=== PATIENT | female | born 1995 | race Native Hawaiian/Other Pacific Islander ===

== ENCOUNTER → 2016-06-15 | Outpatient (CLI) | payer OTHER ==
--- NOTE | 2016-06-15 18:52 | CONS ---
DATE OF CONSULTATION: CONSULTATION/NEW PATIENT EVALUATION A 21-year-old lady who has been evaluated in the [facility] for sleep about 15 hours during the night every day and sometimes difficulties to initiate sleep and sleepiness during the day and also history of sleep paralysis. HISTORY OF PRESENT ILLNESS/SLEEP-WAKE EVALUATION: SLEEP SCHEDULE: Patient's usual sleep schedule is from 10:30 p.m. until around 2:15 p.m. on the next day. If patient wakes up in the morning she eats and then sleeps again. FALLING ASLEEP: Sometimes she has problem with falling asleep. No TV in bedroom. She does not read in bedroom. She does not stay in bedroom without sleep. DURING SLEEP: During sleep she may for snoring if she is significantly tired. She has grinding teeth, episodes of palpitations. While falling asleep she may have discomfort in her legs which decrease while she is moving her legs. also she moves a lot during sleep with possible episodes of kicking. Positive history of sleep on and off paralysis. No history of hypnagogic hallucinations or cataplexy. Patient has episodes of palpitations sometimes during sleep time. DURING THE DAY/WAKE STATE: In the morning she wakes up tired, has difficulties to pay attention, falling asleep during the day. He has irritability. [place] Sleepiness Scale is 8 with again 15 hours of sleep during the night. PAST MEDICAL HISTORY: Positive for episodes of cardiac arrhythmia with high heart rate presently on treatment with metoprolol for that reason. Hypothyroidism. PAST SURGICAL HISTORY: Surgery for hiatal hernia, cholecystectomy, tonsillectomy and adenoidectomy. MEDICATIONS: Metoprolol, Levothyroxine, ( ). SOCIAL HISTORY: Negative for smoking or using alcohol. REVIEW OF SYSTEMS: Difficulties to initiate sleep with very long sleep with difficulties to get up from sleep. No fevers. No double vision. No recent chest pain. No shortness of breath. No abdominal pain. No bleeding episodes. No blood in urine. No seizure episodes. FAMILY HISTORY: Hypertension, heart problems, hyperlipidemia, stroke, arthritis, asthma, snoring, headaches, cancer, acid reflux, diabetes, thyroid problems, anemia, mental illness. PHYSICAL EXAMINATION: GENERAL: A pleasant 21-year-old lady without distress. VITAL SIGNS: BP 147/96, HR 88, RR 16. Height 5 foot 2 inches. Weight 205. BMI 36.8. Neck is 14-3/4 which in circumference. Temp is 98.0. Oxygen saturation at room air 99%. HEENT: PERRLA, EOMI. Evaluation of oropharynx, practically normal position of the soft palate. Some restriction of nasal breathing on the left side. NECK: Supple. No JVD. Thyroid is not palpable. LUNGS: Clear to percussion and to auscultation. Good air exchange. No wheezing or rhonchi. HEART: S1, S2 regular. No murmurs, gallops or rubs. ABDOMEN: Slightly obese. Soft and nontender. Bowel sounds are present. No organomegaly appreciated. EXTREMITIES: No clubbing or cyanosis. RESTUARANT CREW WORKER: Awake, alert, and oriented x3. Cranial nerves 2 to 7 intact. There is no fasciculation or atrophy noted. No focal deficits observed. IMPRESSION: 1. Patient sleeps for 15 hours, but no history of hypnagogic hallucinations or cataplexy. Differential diagnosis includes hypersomnia specifically idiopathic hypersomnia. 2. Positive history on and off sleep paralysis. 3. Snoring episodes, obesity, restriction of nasal breathing, rule out obstructive sleep apnea-hypopnea syndrome. 4. Episodes of cardiac arrhythmia, which never had been record, possibly supraventricular tachycardia. 5. Hypothyroidism, on thyroid replacement. 6. Status post cholecystectomy. 7. Status post surgical treatment of hiatal hernia. 8. Status post tonsillectomy and adenoidectomy. PLAN: 1. Polysomnogram for evaluation of patient's breathing during sleep with the following multiple sleep latency tests for objective evaluation of patient's symptoms of excessive daytime sleepiness. 2. CPAP titration and sleep study positive for obstructive sleep apnea-hypopnea syndrome. 3. Losing weight. 4. Sleep hygiene with regular time in bed for 8 hours. 5. No driving if feeling any sleepiness. 6. Recommendations related to possible insomnia should include psychological techniques including stimulus control, paradoxical intention, worry time, no watching clock. Thank you very much for referring this patient for consultation. Sincerely, Dionisio Alexandra MD, PhD, FAASM. Diplomat of [place] [employer], Sleep Medicine Board by [place] [employer] [place] [employer] [place]
== END | disposition home or self-care (01) ==
LOC: SLEEP 15:52
PROVIDERS: ATTEND Internal Medicine
DX: G47.19 Other hypersomnia (principal); G47.53 Recurrent isolated sleep paralysis; R06.83 Snoring; E66.9 Obesity, unspecified; Z68.36 Body mass index [BMI] 36.0-36.9, adult; I49.9 Cardiac arrhythmia, unspecified; E03.9 Hypothyroidism, unspecified; Z98.890 Other specified postprocedural states
CPT/HCPCS: 99211

== ENCOUNTER → 2016-07-13 | Outpatient (CLI) | payer OTHER ==
--- NOTE | 2016-07-13 18:48 | PN ---
This 21-year-old lady has been followed in the sleep center. She is here to discuss results of her diagnostic sleep study and recommendations. We discussed results of diagnostic sleep study with the patient and her family in details. No significant respiratory abnormalities have been documented. Apnea-hypopnea index is only 0.6, lowest oxygen level 91.9%. Sleep efficiency was decreased. Patient slept only 3 hours 31 minutes, which did not permit us to do multiple sleep latency test after that to evaluate her sleepiness. Her present sleep schedule is usually in the morning hours. She usually sleeps from about 6 a.m. until 12 noon. Only with medications is she able to fall asleep at the regular time. Her [place] Sleepiness Scale today is 7. MEDICATIONS: 1. Metoprolol. 2. Levothyroxine. 3. Sprintec. PHYSICAL EXAMINATION: [id number]-old lady without distress. VITAL SIGNS: BP 135/89 on the left arm. HR around 100. RR 16. Temperature 98.4. Oxygen saturation at room air 98%. Weight 202 pounds. BMI 36.9. HEENT: PERRLA, EOMI. LUNGS: Clear. HEART: S1, S2 regular. ABDOMEN: Slightly obese, soft, nontender. EXTREMITIES: No edema. IMPRESSION: 1. No significant respiratory abnormalities have been documented during the sleep study. 2. Sleep delay syndrome. 3. Obesity; body mass index 36.9. 4. Very mild snoring was documented during the sleep study. 5. Hypothyroidism. 6. History of sleep paralysis. 7. History of sleeping up to 15 hours at home sometimes; idiopathic hypersomnia in differential diagnosis, but again I think most probably it is related to sleep delay syndrome. 8. Status post tonsillectomy and adenoidectomy. 9. Status post cholecystectomy. 10. Status post ( ) PLAN: 1. 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 We discussed possibility of using light machine. 2. Avoid bright light in the evening, especially blue light, like computer or TV, in the late evening. 3. Patient may try to use melatonin at 8 p.m. 4. Preferable position for sleep is on the side. 5. No driving if feeling any sleepiness. 6. If patient continues to have symptoms of excessive daytime sleepiness in the future, we may consider proceeding with a PSG and following multiple sleep latency test. Thank you very much for allowing me to participate in the management of your patient. Sincerely, Dionisio Alexandra MD, PhD, FAASM. Diplomat of [place] [employer], Sleep Medicine Board by [place] [employer], [place] [employer]
== END | disposition home or self-care (01) ==
LOC: SLEEP 13:56
PROVIDERS: ATTEND Internal Medicine
DX: G47.21 Circadian rhythm sleep disorder, delayed sleep phase type (principal); G47.11 Idiopathic hypersomnia with long sleep time; E66.9 Obesity, unspecified; E03.9 Hypothyroidism, unspecified; G47.53 Recurrent isolated sleep paralysis; Z68.36 Body mass index [BMI] 36.0-36.9, adult; Z79.899 Other long term (current) drug therapy

== ENCOUNTER → 2016-09-29 | Outpatient (CLI) | payer OTHER ==
--- NOTE | 2016-09-29 15:10 | CT ---
CT CHEST FOR PULMONARY EMBOLISM. EXAMINATION TYPE: CT angio chest DATE OF EXAM: 09/29/2016 11:09 AM INDICATION: SOB, chest pain CT DLP: 525 mGycm, Automated exposure control for dose reduction was used. CONTRAST: Patient injected with 100 mL of Omnipaque 350. COMPARISON: NONE TECHNIQUE: CT of the chest is performed on a spiral scan at 2 mm thick sections. Study is performed with intravenous contrast timed for evaluation for pulmonary embolism. This will limit additional po rtions of the evaluation. 3-D MIP images reconstructed by the technologist are reviewed on the compu ter in the coronal and sagittal planes. FINDINGS: No persistent filling defects are evident to suggest an acute pulmonary embolism. No mediastinal or hilar adenopathy enlarged by CT criteria is evident. The ascending aorta diameter at the level of the main pulmonary artery is 2.6 cm. The main pulmonary artery diameter at the bifur cation is 2.4 cm. Lung windows are clear.[address] section through the upper abdomen are unremarkable. Cholecystectomy clips are present. IMPRESSIONS: 1. No acute pulmonary process. No suspicious acute pulmonary embolism evident.
== END ==
LOC: RADCTMAIN 10:36
PROVIDERS: ATTEND Family Medicine
DX: I26.99 Other pulmonary embolism without acute cor pulmonale (principal)
CPT/HCPCS: 71275; Q9967

== ENCOUNTER → 2017-01-29 | Day surgery (SDC) | payer OTHER ==
[2017-01-22 14:37] VITALS: BMI 38.5
[~2017-01-29] MED LIST: ONDANSETRON 4 MG/2 ML VIAL IVP ONE; ONDANSETRON 4 MG/2 ML VIAL ONE; SODIUM CHLORIDE 0.9% 1,000 ML IV SCH
[2017-01-29 09:09] VITALS: RESP 18
[2017-01-29 10:55] LABS: Glucose,Whole Blood 94 mg/dL (75-99)
[2017-01-29 11:14] VITALS: TEMP 98.4
[2017-01-29 11:19] VITALS: BP 116/62; PULSE 72
--- NOTE | 2017-01-29 13:15 | P.PCN ---
Preoperative Diagnosis: Twelve-lead ECG Sinus rhythm normal KS narrow QRS normal ST segments normal QT interval no delta waves no epsilon waves normal ST segments in the precordial leads Tilt table test per protocol Baseline blood pressure 126/79 mmHg Baseline heart rate 74 beats a minute Patient was tilted upright at an angle of 70. There was a gradual increase in her blood pressure and heart rate maintained sinus rhythm was hypertensive Blood pressure increased 163/97 mmHg. During the first 10 minutes heart rate increased from 74-87 beats a minute. It was towards the end of the tilt table test and a heart rate increased above 100 beats a minute started to sweat complaining of nausea complained of lightheaded and shaky when she was laid supine her blood pressure was 137/74 mmHg her heart rate is 79 beats a minute Impression Absence of a neurocardiogenic response to upright tilting A gradual progressive increase in heart rate as well as in the patient's blood pressure was noted Suggest Neurologic evaluation Postoperative Diagnosis: Procedure(s) Performed: Implants: Indications for Procedure: Operative Findings: Description of Procedure:
== END ==
LOC: CATHEP 08:44
PROVIDERS: ATTEND Internal Medicine Clinical Cardiac Electrophysiology
DX: I47.1 Supraventricular tachycardia (principal); Z79.899 Other long term (current) drug therapy; Z88.5 Allergy status to narcotic agent
CPT/HCPCS: 93005; 93660; 81025; J2405

== ENCOUNTER → 2017-02-10 | Outpatient (CLI) | payer OTHER ==
--- NOTE | 2017-02-10 13:20 | XR ---
EXAMINATION TYPE: XR chest 2V DATE OF EXAM: 02/10/2017 COMPARISON: CTA chest September 29, 2016. HISTORY: Cough and cardiac arrhythmia. TECHNIQUE: Frontal and lateral views of the chest are obtained. FINDINGS: There is no focal air space opacity, pleural effusion, or pneumothorax seen. The cardiac silhouette size is within normal limits. The osseous structures are intact. Cholecystectomy clips a re redemonstrated. IMPRESSION: No acute cardiopulmonary process. No significant change from prior.
== END | disposition home or self-care (01) ==
LOC: LABWHC1 12:55
PROVIDERS: ATTEND Family Medicine
DX: I49.9 Cardiac arrhythmia, unspecified (principal)
CPT/HCPCS: 71020

== ENCOUNTER → 2017-02-10 | Outpatient (CLI) | payer OTHER ==
[2017-02-10 13:34] LABS: CH 27.2; CHCM 33.3; HCT 40.9 % (34.0-46.0); HDW 2.82; HGB 13.5 gm/dL (11.4-16.0); MCV 81.9 fL (80.0-100.0); Mean Platelet Volume 7.4; RDW 14.4 % (11.5-15.5); WBC 8.2 k/uL (3.8-10.6)
[2017-02-10 14:00] LABS: Anion Gap 11 mmol/L; Blood Urea Nitrogen 11 mg/dL (7-17); Calcium 9.6 mg/dL (8.4-10.2); Carbon Dioxide 26 mmol/L (22-30); Chloride 105 mmol/L (98-107); Glucose 96 mg/dL (74-99); Non-African American GFR(MDRD) >60 (>60 ml/min/1.73 sqM); Potassium 4.7 mmol/L (3.5-5.1); Sodium 142 mmol/L (137-145)
== END | disposition home or self-care (01) ==
LOC: LABWHC1 12:51
PROVIDERS: ATTEND Internal Medicine Clinical Cardiac Electrophysiology
DX: I47.1 Supraventricular tachycardia (principal)
CPT/HCPCS: 36415; 80048; 85027

== ENCOUNTER 2017-02-19 11:00 | Day surgery (SDC) | payer OTHER ==
[2017-02-16 08:44] VITALS: BMI 38.4
[~2017-02-19 11:00] MED LIST changes: -ONDANSETRON 4 MG/2 ML VIAL IVP ONE; -ONDANSETRON 4 MG/2 ML VIAL ONE
[2017-02-19] MEDS ORDERED: MIDAZOLAM 2 MG/2 ML VIAL IV ONE (11:58)
[2017-02-19] MEDS ORDERED: fentaNYL (PF) 50 MCG/ML 2 ML AMP ONE (13:37)
[2017-02-19] MEDS ORDERED: diphenhydrAMINE 50 MG/ML 1 ML VIAL ONE (13:37)
[2017-02-19] MEDS ORDERED: MIDAZOLAM 2 MG/2 ML VIAL ONE (13:37)
[2017-02-19] MEDS ORDERED: PROPOFOL 10 MG/ML 20 ML VIAL IV ONE (13:37)
[2017-02-19] MEDS ORDERED: LIDOCAINE 2% INJ 20 MG/ML SQ ONE (14:20)
[2017-02-19] MEDS ORDERED: HEPARIN SODIUM (1,000 UNIT/ML) 1,000 UNIT in SODIUM CHLORIDE 0.9% 1,000 ML IRRIGATION ONE (15:00)
[2017-02-19] MEDS ORDERED: HYDROcodone/APAP 5-325MG 1 EACH TAB PO PRN (16:32)
--- NOTE | 2017-02-19 16:41 | P.PCN ---
Preoperative Diagnosis: Indication for the procedure SVT despite nadolol 20 mg by mouth daily Final diagnosis Inappropriate sinus tachycardia with a resting heart rates up to 140-150 beats a minute Status post AV node modification with residual heart rates of about 110-120 beats a minute No other SVT arrhythmias induced Procedure performed Limited sinus node modification Multiple activation maps created Reduction in heart rate from 146 to 112 beats a minute Plan Medical treatment with IVABRADINE 5 mg by mouth twice a day Since she has failed nadolol Postoperative Diagnosis: Procedure(s) Performed: Implants: Anesthesia: MAC Condition: stable Disposition: observation Indications for Procedure: Operative Findings: Description of Procedure:
[2017-02-19] MEDS ORDERED: NADOLOL 20 MG TAB PO SCH (16:45)
[2017-02-19] MEDS ORDERED: ONDANSETRON 4 MG/2 ML VIAL IVP ONE (16:50)
--- NOTE | 2017-02-19 17:05 | P.PCN ---
Preoperative Diagnosis: Diagnostic EP study for SVT, drug refractory Patient was brought to the EP lab in a fasting state. Written informed consent was obtained prior to the procedure. The right and left groins were prepped and draped as a protocol and to venous sheaths were placed in the right femoral vein and another 2 venous sheaths were placed in the left femoral vein. Via these diagnostic catheters were placed in the high right atrium His bundle area right ventricle and coronary sinus The patient wasn't tachycardia the start of the study tachycardia cycle length 364 ms, GA interval 78, QRS 84 and QT interval 250 ms. AH interval 82, HV interval 46, within normal limits No evidence for slow pathway conduction no evidence for any echo beats no evidence for accessory pathway conduction. AV node Wenckebach block to 90 ms VA Wenckebach block 390 ms. Atrial extra stimulation with single and double extrastimuli from the high right atrium as well as from the coronary sinus and the right ventricle was performed. No other SVT was induced Isuprel was not used Coronary sinus massage briefly slow down the tachycardia and then resume once again The atrial activation was consistent with a high to low sequence similar to the sinus node Multiple 3-D maps were created both with the ablation and mapping catheter as well as with the Pentaray catheter RF ablation was applied at the earliest site in the anterior lateral low SVC RA junction after confirming the absence of any phrenic nerve stimulation Repeat mapping was performed after RF applications Finally Pentaray catheter was used to obtain the final detailed map. This showed a broad area of activation as expected in the SVC RA junction. The earliest site was targeted. Patient's sinus rate decreased from 146 beats a minute to as low as 112 beats a minute, range 110-120 bpm Contact force between 5 and 20 g, power between 25-30 W Significant reduction in the electrograms and splitting of the electrograms at the earliest site noted At the end of the procedure when a heart rate decreased to 112 beats a minute all catheters were removed. Further sinus node modification was not performed, extensive ablation was avoided to avoid permanent sinus node damage Patient for the procedure well without any acute complications Impression Inappropriate sinus tachycardia Status post limited sinus node modification as the patient failed nadolol 20 mg by mouth daily Suggest IVABRADINE 5 mg twice daily since patient has already failed nadolol and sinus tachycardia remains after a limited sinus node modification was performed Postoperative Diagnosis: Procedure(s) Performed: Implants: Anesthesia: MAC Condition: stable Disposition: observation Indications for Procedure: Operative Findings: Description of Procedure:
[2017-02-19] MEDS: ACETAMINOPHEN IV (For NPO) 1,000 MG in EMPTY BAG 1 BAG IVPB ONE ×2 (17:45→18:00)
[2017-02-19] MEDS ORDERED: LACTATED RINGERS 1,000 ML IV ONE (17:59)
[2017-02-19] MEDS: NADOLOL 20 MG TAB PO SCH (18:42)
[2017-02-19] MEDS ORDERED: MELATONIN 5 MG TABLET PO PRN (19:56)
[2017-02-19] MEDS ORDERED: LEVOTHYROXINE 50 MCG TAB PO SCH (21:00)
[2017-02-20] MEDS: ACETAMINOPHEN TAB 325 MG TAB PO PRN ×2 (02:24→08:30)
[2017-02-20] MEDS: NADOLOL 20 MG TAB PO SCH (09:24)
[2017-02-20 14:13] VITALS: BP 136/74; PULSE 84; RESP 16; TEMP 97.5
--- NOTE | 2017-02-20 15:04 | P.DS ---
Providers Attending physician: Pascual Mcgowan Primary care physician: [facility] Course: Patient is doing well. No chest discomfort no dizziness lightheadedness denies any palpitations. Resting heart rate 93 beats a minute. On 12 ECG ND is prolonged at 280 ms on nadolol 40 mg by mouth daily. Patient is in normal rhythm is regular heart sounds are normal breath sounds are normal no rhonchi no crackles no murmurs no gallops no rub Afebrile 97.5F, pulse rate in the 80s to 90s, blood pressure 136/74 mmHg Impression Inappropriate sinus tachycardia Sinus node modification with heart rates down from 146 beats a minute to 110- 120 beats a minute Started on nadolol 40 mg by mouth daily Significant ND prolongation on nadolol to 280 mm seconds Nadolol reduced to 20 mg by mouth daily IVABRADINE recommended, 5 mg by mouth twice a day for management of inappropriate sinus tachycardia Normal TSH Plan Discharge home today follow-up for a groin check within a week and follow-up with Dr. Hopper as scheduled along with a 24-hour Holter monitor 2 weeks prior to that Patient intolerant of 40 mg of nadolol. I would recommend IVABRADINE 5 mg twice daily Patient Condition at Discharge: Good Plan - Discharge Summary New Discharge Prescriptions: No Action Levothyroxine Sodium [Synthroid] 50 mcg PO HS Albuterol Inhaler [Ventolin Hfa Inhaler] 1 puff PO DAILY PRN PRN Reason: Shortness Of Breath Or Wheezing Nadolol [Corgard] 20 mg PO DAILY Norgestimate-Ethinyl Estradiol [Sprintec 28 Day Tablet] 1 each PO DAILY Ibuprofen [Motrin] 800 mg PO PC-TID PRN PRN Reason: Moderate Pain Discharge Medication List Levothyroxine Sodium [Synthroid] 50 mcg PO HS 12/05/13 [History] Albuterol Inhaler [Ventolin Hfa Inhaler] 1 puff PO DAILY PRN 07/02/15 [History] Nadolol [Corgard] 20 mg PO DAILY 01/22/17 [History] Norgestimate-Ethinyl Estradiol [Sprintec 28 Day Tablet] 1 each PO DAILY [History] Ibuprofen [Motrin] 800 mg PO PC-TID PRN 02/19/17 [History] Follow up Appointment(s)/Referral(s): Pascual Mcgowan MD [STAFF PHYSICIAN] - 1 Week (Appointment made for groin check on Feb.23 @ 11:00am.) Patient Instructions/Handouts: Supraventricular Tachycardia (DC), Cardiac Ablation (DC) Activity/Diet/Wound Care/Special Instructions: Post EP study - Ablation instructions 1. Keep access sites dry for 2 days. 2. No heavy lifting or straining for 2 days. 3. Avoid bending the hips repeatedly for 2 days. 4. You may go up and down stairs slowly Call if the following is noted 1. Bleeding, increasing swelling or pain at the access sites. 2. Increasing chest discomfort, especially upon taking a deep breath. 3. Increasing shortness of breath, at rest or with exertion. 4. Undue cough / phlegm 5. Difficulty or pain while swallowing. 6. Pain or change in color in the extremities. 7. Fever, chills, rigors. 8. Increasing headache or neurologic symptoms. 9. Dizziness, fainting, palpitions. Keep on Nadolol 20 mg daily. Keep appointment in March to see Dr Mcgowan Discharge Disposition: HOME SELF-CARE
== END 2017-02-20 13:55 | disposition home or self-care (01) ==
LOC: CATHEP 11:00 → 3OBS 16:33 → CATHEP 02-20 13:55
PROVIDERS: ATTEND Internal Medicine Clinical Cardiac Electrophysiology
DX: I47.1 Supraventricular tachycardia (principal); R55 Syncope and collapse; J45.909 Unspecified asthma, uncomplicated; E07.9 Disorder of thyroid, unspecified; K21.9 Gastro-esophageal reflux disease without esophagitis; Z79.899 Other long term (current) drug therapy; Z88.6 Allergy status to analgesic agent; Z88.5 Allergy status to narcotic agent
CPT/HCPCS: 93613; 93653; 84443; 81025; C1894; C1769; C1730 ×3; C1731; C1732; J2001; J2250; J2405; J1644; J0131

== ENCOUNTER → 2017-03-26 | Outpatient (CLI) | payer OTHER ==
--- NOTE | 2017-03-26 17:05 | US ---
EXAMINATION TYPE: US lower ext pseudo artery LT DATE OF EXAM: 03/26/2017 COMPARISON: NONE CLINICAL HISTORY: I72.9 Psuedoaneurysm; Assess for left groin pseudoaneurysm. EXAM PERFORMED: Grayscale and color Doppler duplex imaging performed of the groin, post cardiac blair ter to assess for pseudoaneurysm. SIDE PERFORMED: left Color and Waveform Doppler performed to assess for the presence of pseudoaneurysm; Is there ultrasound evidence of a pseudoaneurysm: no Is there evidence of AV shunting: no Is there a fluid collection present: no Left groin: couple of lymph nodes are imaged with larger = 3.1 x 1.6 x 0.5cm.These are nonenlarged an d short axis measuring 5 mm and 6 mm in short axis. Parallel echoes are noted within MANUFACTURING SUPPORT ENGINEER on images #29 and # 30 and color flow patency is noted around wa ll echoes and may be scar tissue from cardiac catheterization or collagen plug (patient stated unawar e if collagen plug was used.) IMPRESSION: 1. No sonographic evidence of pseudoaneurysm. 2. Few echoes within the common femoral artery are seen that may be related to scar tissue as they ar e linear in orientation, nonocclusive and there is appropriate vascular flow.
== END ==
LOC: RADUSWWP 16:12
PROVIDERS: ATTEND Internal Medicine Clinical Cardiac Electrophysiology
DX: I72.9 Aneurysm of unspecified site (principal)
CPT/HCPCS: 93975

== ENCOUNTER 2018-02-16 10:06 | Emergency (ER) | payer OTHER ==
[2018-02-16 10:15] VITALS: RESP 18
[2018-02-16] MEDS ORDERED: KETOROLAC 60 MG/2 ML VIAL IVP STA (10:19)
--- NOTE | 2018-02-16 10:24 | ED ---
General Adult HPI - General Chief complaint: Chest Pain Stated complaint: Chest Pain Time Seen by Provider: 02/16/18 10:06 Source: EMS, RN notes reviewed Mode of arrival: EMS Limitations: no limitations - History of Present Illness Initial comments: This is a 22-year-old female presents emergency room with a past history of SVT possibly A. fib. Patient also is on control. Patient comes into the emergency department today because she had sharp chest pain in the middle of her chest that lasted a couple of minutes. Patient states it also hurts to touch that area. Patient states she was not lifting or doing anything that will would've hurt her chest when it started. Patient states currently lying here she has no pain at all. Patient denies any shortness of breath or difficulty breathing. Patient denies any diaphoretic episodes. Patient denies any nausea vomiting diarrhea. Patient denies abdominal pain. Patient denies any lightheadedness dizziness or near-syncopal episode. Patient denies any recent fever chills or cough. Patient denies any swelling to the legs or calf tenderness. - Related Data Home Medications Medication Instructions Recorded Confirmed Levothyroxine Sodium [Synthroid] 50 mcg PO HS 12/05/13 02/16/18 Albuterol Inhaler [Ventolin Hfa 1 - 2 puff PO RT-QID PRN 07/02/15 02/16/18 Inhaler] Nadolol [Corgard] 20 mg PO DAILY 01/22/17 02/16/18 Norgestimate-Ethinyl Estradiol 1 tab PO HS 02/16/17 02/16/18 [Sprintec 28 Day Tablet] Previous Rx's Medication Instructions Recorded Ibuprofen [Motrin] 600 mg PO Q6HR PRN #20 tab 02/16/18 Allergies Allergy/AdvReac Type Severity Reaction Status Date / Time codeine phosphate Allergy Severe ABDOMINAL Verified 02/16/18 10:58 [From Tylenol-Codeine #3] PAIN, FAINTING shellfish derived Allergy Severe Anaphylaxis Verified 02/16/18 10:58 acetaminophen [From Vicodin] Allergy Nausea & Verified 02/16/18 10:58 Vomiting hydrocodone bitartrate Allergy Nausea & Verified 02/16/18 10:58 [From Vicodin] Vomiting Review of Systems ROS Statement: Those systems with pertinent positive or pertinent negative responses have been documented in the HPI. ROS Other: All systems not noted in ROS Statement are negative. Past Medical History Past Medical History: Asthma Additional Past Medical History / Comment(s): OCC HYPOGLYCEMIA. See Dr Mcgowan' s H&P, SVT History of Any Multi-Drug Resistant Organisms: MRSA Date of last positivie culture/infection: 06/11/09 MDRO Source:: THIGH Past Surgical History: Adenoidectomy, Cholecystectomy, Tonsillectomy Additional Past Surgical History / Comment(s): WISDOM TOOTH OUT 11/17/13, Ablasion due to SVT. Past Anesthesia/Blood Transfusion Reactions: Family History of Problems w/ Anesthesia, Motion Sickness Additional Past Anesthesia/Blood Transfusion Reaction / Comment(s): SLOW TO AWAKEN OCC.; sister n/v Past Psychological History: ADD/ADHD Smoking Status: Never smoker Past Alcohol Use History: None Reported Past Drug Use History: None Reported - Past Family History Mother Family Medical History: No Reported History General Exam - General Exam Comments Initial Comments: GENERAL: Patient is well-developed and well-nourished. Patient is nontoxic and well- hydrated and is in no acute distress. ENT: Neck is soft and supple. No significant lymphadenopathy is noted. Oropharynx is clear. Moist mucous membranes. Neck has full range of motion without eliciting any pain. EYES: The sclera were anicteric and conjunctiva were pink and moist. Extraocular movements were intact and pupils were equal round and reactive to light. Eyelids were unremarkable. PULMONARY: Unlabored respirations. Good breath sounds bilaterally. No audible rales rhonchi or wheezing was noted. CARDIOVASCULAR: There is a regular rate and rhythm without any murmurs gallops or rubs. Patient 's chest pain is reproducible. ABDOMEN: Soft and nontender with normal bowel sounds. SKIN: Skin is clear with no lesions or rashes and otherwise unremarkable. NEUROLOGIC: Patient is alert and oriented x3. Cranial nerves II through XII are grossly intact. Motor and sensory are also intact. Normal speech, volume and content. Symmetrical smile. MUSCULOSKELETAL: Normal extremities with adequate strength and full range of motion. No lower extremity swelling or edema. No calf tenderness. LYMPHATICS: No significant lymphadenopathy is noted PSYCHIATRIC: Normal psychiatric evaluation. Limitations: no limitations Course Vital Signs 02/16/18 02/16/18 10:08 10:23 Temperature 99.0 F Pulse Rate 75 Pulse Rate [ 85 Specialty Molder ] Respiratory 18 Rate Blood Pressure 150/80 O2 Sat by Pulse 99 Oximetry Medical Decision Making - Medical Decision Making EKG shows normal sinus rhythm at 76 bpm LA interval 294 QRS is 84 QT interval 374 QTC is 420. Patient's EKG shows no ST segment elevation or depression or T- wave abdomen is noted. I clarified with the patient what type of pain as well as she stated to me it was not pressure and sharpness and it radiated from the center of her chest just a few inches over towards the left but not into her shoulder. Patient also indicated they did give her nitroglycerin but she does not know if it helped or not because the pain typically lasts 1-2 minutes anyhow. Chest x-ray shows no acute abnormality. Patient refused the Toradol. - Lab Data Result diagrams: 02/16/18 10:20 02/16/18 10:20 Lab Results 02/16/18 02/16/18 02/16/18 Range/Units 10:20 10:20 10:20 WBC 8.5 (3.8-10.6) k/uL RBC 4.46 (3.80-5.40) m/uL Hgb 12.0 (11.4-16.0) gm/dL Hct 37.9 (34.0-46.0) % MCV 84.8 (80.0-100.0) fL MCH 26.9 (25.0-35.0) pg MCHC 31.8 (31.0-37.0) g/dL RDW 13.2 (11.5-15.5) % Plt Count 319 (150-450) k/uL Neutrophils % 68 % Lymphocytes % 22 % Monocytes % 5 % Eosinophils % 1 % Basophils % 0 % Neutrophils # 5.8 (1.3-7.7) k/uL Lymphocytes # 1.9 (1.0-4.8) k/uL Monocytes # 0.4 (0-1.0) k/uL Eosinophils # 0.1 (0-0.7) k/uL Basophils # 0.0 (0-0.2) k/uL PT (9.0-12.0) sec INR (<1.2) APTT (22.0-30.0) sec D-Dimer (<0.60) mg/L FEU Sodium 141 (137-145) mmol/L Potassium 3.7 (3.5-5.1) mmol/L Chloride 109 H (98-107) mmol/L Carbon Dioxide 23 (22-30) mmol/L Anion Gap 9 mmol/L BUN 12 (7-17) mg/dL Creatinine 0.63 (0.52-1.04) mg/dL Est GFR (CKD-EPI)AfAm >90 (>60 ml/min/1.73 sqM) Est GFR (CKD-EPI)NonAf >90 (>60 ml/min/1.73 sqM) Glucose 100 H (74-99) mg/dL Calcium 8.8 (8.4-10.2) mg/dL Magnesium 1.8 (1.6-2.3) mg/dL Total Bilirubin 0.4 (0.2-1.3) mg/dL AST 20 (14-36) U/L ALT 22 (9-52) U/L Alkaline Phosphatase 64 (38-126) U/L Total Creatine Kinase 42 (30-135) U/L CK-MB (CK-2) <0.2 (0.0-2.4) ng/mL CK-MB (CK-2) Rel Index Troponin I <0.012 (0.000-0.034) ng/mL Total Protein 6.3 (6.3-8.2) g/dL Albumin 3.2 L (3.5-5.0) g/dL 02/16/18 Range/Units 10:20 WBC (3.8-10.6) k/uL RBC (3.80-5.40) m/uL Hgb (11.4-16.0) gm/dL Hct (34.0-46.0) % MCV (80.0-100.0) fL MCH (25.0-35.0) pg MCHC (31.0-37.0) g/dL RDW (11.5-15.5) % Plt Count (150-450) k/uL Neutrophils % % Lymphocytes % % Monocytes % % Eosinophils % % Basophils % % Neutrophils # (1.3-7.7) k/uL Lymphocytes # (1.0-4.8) k/uL Monocytes # (0-1.0) k/uL Eosinophils # (0-0.7) k/uL Basophils # (0-0.2) k/uL PT 10.0 (9.0-12.0) sec INR 1.0 (<1.2) APTT 23.1 (22.0-30.0) sec D-Dimer 0.28 (<0.60) mg/L FEU Sodium (137-145) mmol/L Potassium (3.5-5.1) mmol/L Chloride (98-107) mmol/L Carbon Dioxide (22-30) mmol/L Anion Gap mmol/L BUN (7-17) mg/dL Creatinine (0.52-1.04) mg/dL Est GFR (CKD-EPI)AfAm (>60 ml/min/1.73 sqM) Est GFR (CKD-EPI)NonAf (>60 ml/min/1.73 sqM) Glucose (74-99) mg/dL Calcium (8.4-10.2) mg/dL Magnesium (1.6-2.3) mg/dL Total Bilirubin (0.2-1.3) mg/dL AST (14-36) U/L ALT (9-52) U/L Alkaline Phosphatase (38-126) U/L Total Creatine Kinase (30-135) U/L CK-MB (CK-2) (0.0-2.4) ng/mL CK-MB (CK-2) Rel Index Troponin I (0.000-0.034) ng/mL Total Protein (6.3-8.2) g/dL Albumin (3.5-5.0) g/dL Disposition Clinical Impression: Chest wall pain Disposition: HOME SELF-CARE Condition: Good Instructions: Chest Pain (ED) Prescriptions: Ibuprofen [Motrin] 600 mg PO Q6HR PRN #20 tab PRN Reason: For pain Is patient prescribed a controlled substance at d/c from ED?: No Referrals: Tanvir Tay DO [Primary Care Provider] - 1-2 days Time of Disposition: 11:19
[2018-02-16 10:41] LABS: Basophils % (A) 0 %; Eosinophils # (A) 0.1 k/uL (0-0.7); Eosinophils % (A) 1 %; HCT 37.9 % (34.0-46.0); Lymphocytes # (A) 1.9 k/uL (1.0-4.8); Lymphocytes % (A) 22 %; MCH 26.9 pg (25.0-35.0); MCHC 31.8 g/dL (31.0-37.0); MCV 84.8 fL (80.0-100.0); Mean Platelet Volume 7.4; Monocytes # (A) 0.4 k/uL (0-1.0); Monocytes % (A) 5 %; Neutrophils # (A) 5.8 k/uL (1.3-7.7); Neutrophils % (A) 68 %; Platelet Count 319 k/uL (150-450); RBC 4.46 m/uL (3.80-5.40); RDW 13.2 % (11.5-15.5); WBC 8.5 k/uL (3.8-10.6)
[2018-02-16 10:46] LABS: ALT 22 U/L (9-52); AST 20 U/L (14-36); Albumin 3.2 g/dL (3.5-5.0); Alkaline Phosphatase 64 U/L (38-126); Anion Gap 9 mmol/L; Blood Urea Nitrogen 12 mg/dL (7-17); Calcium 8.8 mg/dL (8.4-10.2); Carbon Dioxide 23 mmol/L (22-30); Chloride 109 mmol/L (98-107); Glucose 100 mg/dL (74-99); Magnesium 1.8 mg/dL (1.6-2.3); Potassium 3.7 mmol/L (3.5-5.1); Sodium 141 mmol/L (137-145); Total Bilirubin 0.4 mg/dL (0.2-1.3); Total Protein 6.3 g/dL (6.3-8.2)
--- NOTE | 2018-02-16 10:46 | XR ---
EXAMINATION TYPE: XR chest 2V DATE OF EXAM: 02/16/2018 HISTORY: Chest Pain. REFERENCE: Previous study dated 04/14/2017. FINDINGS: The lungs are clear. Pleural space are clear. There is no evidence of pneumothorax. The hea rt is not enlarged. IMPRESSION: NORMAL CHEST.
[2018-02-16 10:51] LABS: D-Dimer 0.28 mg/L FEU (<0.60); Partial Thromboplastin Time 23.1 sec (22.0-30.0)
[2018-02-16 10:59] LABS: Creatine Kinase 42 U/L (30-135)
[2018-02-16 11:13] LABS: Creatine Kinase MB <0.2 ng/mL (0.0-2.4); Troponin I <0.012 ng/mL (0.000-0.034)
[2018-02-16 11:34] VITALS: BP 147/84; PULSE 70; TEMP 98.6
== END 2018-02-16 11:33 | disposition home or self-care (01) ==
LOC: EC 10:06
DX: R07.89 Other chest pain (principal); J45.909 Unspecified asthma, uncomplicated; Z79.899 Other long term (current) drug therapy; Z88.6 Allergy status to analgesic agent; Z88.5 Allergy status to narcotic agent; Z91.013 Allergy to seafood
CPT/HCPCS: 36415; 71046; 80053; 82550; 82553; 83735; 84484; 85025; 85379; 85610; 85730; 93005; 99285

== ENCOUNTER 2019-03-16 14:45 | Emergency (ER) | payer OTHER ==
[2019-03-16 14:56] VITALS: TEMP 99.5
[2019-03-16] MEDS ORDERED: FAMOTIDINE 20 MG/2 ML VIAL IV STA (15:38)
[2019-03-16] MEDS ORDERED: diphenhydrAMINE 50 MG/ML 1 ML VIAL IVP STA (15:38)
[2019-03-16] MEDS ORDERED: methylPREDNISolone SOD SUCCI 125 MG/2 ML VIAL IV STA (15:38)
[2019-03-16 16:04] LABS: Basophils % (A) 0 %; Eosinophils # (A) 0.1 k/uL (0-0.7); Eosinophils % (A) 1 %; HCT 43.6 % (34.0-46.0); HGB 14.1 gm/dL (11.4-16.0); Lymphocytes # (A) 2.2 k/uL (1.0-4.8); Lymphocytes % (A) 25 %; MCH 28.6 pg (25.0-35.0); MCHC 32.3 g/dL (31.0-37.0); MCV 88.6 fL (80.0-100.0); Mean Platelet Volume 7.1; Monocytes # (A) 0.4 k/uL (0-1.0); Monocytes % (A) 4 %; Neutrophils # (A) 5.7 k/uL (1.3-7.7); Neutrophils % (A) 67 %; Platelet Count 374 k/uL (150-450); RBC 4.92 m/uL (3.80-5.40); RDW 12.7 % (11.5-15.5); WBC 8.5 k/uL (3.8-10.6)
--- NOTE | 2019-03-16 16:05 | ED ---
General Adult HPI - General Chief complaint: Recheck/Abnormal Lab/Rx Stated complaint: allergic reaction Time Seen by Provider: 03/16/19 15:37 Source: patient, family, RN notes reviewed Mode of arrival: ambulatory Limitations: no limitations - History of Present Illness Initial comments: 23-year-old female presents emergency Department chief complaint ALLERGIC reaction. Patient states she was she's had ALLERGIC reaction to seafood. Patient states that she ate some food from [employer] and feels that she started having a reaction. Vomit. She states that her hands are cramping and states that she felt some tightness and tingling. She states this is exactly how she presented when she found that she is ALLERGIC to shrimp. Patient denies active bleeding. She states she does feel very shaky. Patient denies feeling anxious at this time. Denies any nausea vomiting. Denies any rashes. - Related Data Home Medications Medication Instructions Recorded Confirmed Levothyroxine Sodium [Synthroid] 50 mcg PO HS 12/05/13 02/16/18 Albuterol Inhaler [Ventolin Hfa 1 - 2 puff PO RT-QID PRN 07/02/15 02/16/18 Inhaler] Nadolol [Corgard] 20 mg PO DAILY 01/22/17 02/16/18 Norgestimate-Ethinyl Estradiol 1 tab PO HS 02/16/17 02/16/18 [Sprintec 28 Day Tablet] Previous Rx's Medication Instructions Recorded Ibuprofen [Motrin] 600 mg PO Q6HR PRN #20 tab 02/16/18 diphenhydrAMINE [Benadryl] 50 mg PO QID PRN #20 capsule 03/16/19 predniSONE 50 mg PO DAILY #3 tab 03/16/19 Allergies Allergy/AdvReac Type Severity Reaction Status Date / Time codeine phosphate Allergy Severe ABDOMINAL Verified 03/16/19 14:56 [From Tylenol-Codeine #3] PAIN, FAINTING shellfish derived Allergy Severe Anaphylaxis Verified 03/16/19 14:56 acetaminophen [From Vicodin] Allergy Nausea & Verified 03/16/19 14:56 Vomiting hydrocodone bitartrate Allergy Nausea & Verified 03/16/19 14:56 [From Vicodin] Vomiting Review of Systems ROS Statement: Those systems with pertinent positive or pertinent negative responses have been documented in the HPI. ROS Other: All systems not noted in ROS Statement are negative. Past Medical History Past Medical History: Asthma Additional Past Medical History / Comment(s): OCC HYPOGLYCEMIA. See Dr Mcgowan's H&P, SVT History of Any Multi-Drug Resistant Organisms: MRSA Date of last positivie culture/infection: 06/11/09 MDRO Source:: THIGH Past Surgical History: Adenoidectomy, Cholecystectomy, Tonsillectomy Additional Past Surgical History / Comment(s): WISDOM TOOTH OUT 11/17/13, Ablasion due to SVT. Past Anesthesia/Blood Transfusion Reactions: Family History of Problems w/ Anesthesia, Motion Sickness Additional Past Anesthesia/Blood Transfusion Reaction / Comment(s): SLOW TO AWAKEN OCC.; sister n/v Past Psychological History: ADD/ADHD Smoking Status: Never smoker Past Alcohol Use History: None Reported Past Drug Use History: None Reported - Past Family History Mother Family Medical History: No Reported History General Exam Limitations: no limitations General appearance: alert, in no apparent distress, anxious Head exam: Present: atraumatic, normocephalic, normal inspection Eye exam: Present: normal appearance, PERRL, EOMI. Absent: scleral icterus, conjunctival injection, periorbital swelling ENT exam: Present: normal exam, normal oropharynx, mucous membranes moist Neck exam: Present: normal inspection, full ROM. Absent: tenderness, meningismus, lymphadenopathy Respiratory exam: Present: normal lung sounds bilaterally. Absent: respiratory distress, wheezes, rales, rhonchi, stridor Cardiovascular Exam: Present: normal rhythm, tachycardia, normal heart sounds. Absent: systolic murmur, diastolic murmur, rubs, gallop, clicks GI/Abdominal exam: Present: soft, normal bowel sounds. Absent: distended, tenderness, guarding, rebound, rigid Neurological exam: Present: alert, oriented X3 Skin exam: Present: warm, dry, intact, normal color. Absent: rash Course Vital Signs 03/16/19 14:54 Temperature 99.5 F Pulse Rate 125 H Respiratory 18 Rate Blood Pressure 170/82 O2 Sat by Pulse 99 Oximetry Medical Decision Making - Medical Decision Making 23-year-old female presented emergency department for ALLERGIC reaction patient given a Medrol Benadryl and Pepcid all symptoms have resolved. Patient did have some uncontrolled shaking last her jaw which unremarkable. Patient will be discharged - Lab Data Result diagrams: 03/16/19 15:54 03/16/19 15:54 Lab Results 03/16/19 03/16/19 Range/Units 15:54 15:54 WBC 8.5 (3.8-10.6) k/uL RBC 4.92 (3.80-5.40) m/uL Hgb 14.1 (11.4-16.0) gm/dL Hct 43.6 (34.0-46.0) % MCV 88.6 (80.0-100.0) fL MCH 28.6 (25.0-35.0) pg MCHC 32.3 (31.0-37.0) g/dL RDW 12.7 (11.5-15.5) % Plt Count 374 (150-450) k/uL Neutrophils % 67 % Lymphocytes % 25 % Monocytes % 4 % Eosinophils % 1 % Basophils % 0 % Neutrophils # 5.7 (1.3-7.7) k/uL Lymphocytes # 2.2 (1.0-4.8) k/uL Monocytes # 0.4 (0-1.0) k/uL Eosinophils # 0.1 (0-0.7) k/uL Basophils # 0.0 (0-0.2) k/uL Sodium 138 (137-145) mmol/L Potassium 4.3 (3.5-5.1) mmol/L Chloride 103 (98-107) mmol/L Carbon Dioxide 25 (22-30) mmol/L Anion Gap 10 mmol/L BUN 9 (7-17) mg/dL Creatinine 0.66 (0.52-1.04) mg/dL Est GFR (CKD-EPI)AfAm >90 (>60 ml/min/1.73 sqM) Est GFR (CKD-EPI)NonAf >90 (>60 ml/min/1.73 sqM) Glucose 100 H (74-99) mg/dL Calcium 9.3 (8.4-10.2) mg/dL Total Bilirubin 0.6 (0.2-1.3) mg/dL AST 22 (14-36) U/L ALT 27 (9-52) U/L Alkaline Phosphatase 105 (38-126) U/L Total Protein 7.4 (6.3-8.2) g/dL Albumin 4.0 (3.5-5.0) g/dL Disposition Clinical Impression: Allergic reaction Disposition: HOME SELF-CARE Condition: Stable Instructions (If sedation given, give patient instructions): General Allergic Reaction (ED) Additional Instructions: Please return to the Emergency Department if symptoms worsen or any other concerns. Prescriptions: diphenhydrAMINE [Benadryl] 50 mg PO QID PRN #20 capsule PRN Reason: Allergic Reaction predniSONE 50 mg PO DAILY #3 tab Is patient prescribed a controlled substance at d/c from ED?: No Referrals: Tanvir Tay DO [Primary Care Provider] - 1-2 days Time of Disposition: 16:29
[2019-03-16 16:13] LABS: ALT 27 U/L (9-52); AST 22 U/L (14-36); African American GFR (CKD) >90 (>60 ml/min/1.73 sqM); Alkaline Phosphatase 105 U/L (38-126); Anion Gap 10 mmol/L; Blood Urea Nitrogen 9 mg/dL (7-17); Calcium 9.3 mg/dL (8.4-10.2); Carbon Dioxide 25 mmol/L (22-30); Chloride 103 mmol/L (98-107); Glucose 100 mg/dL (74-99); Potassium 4.3 mmol/L (3.5-5.1); Sodium 138 mmol/L (137-145); Total Bilirubin 0.6 mg/dL (0.2-1.3); Total Protein 7.4 g/dL (6.3-8.2)
[2019-03-16 16:41] VITALS: BP 141/76; PULSE 101; RESP 16
== END 2019-03-16 16:37 | disposition home or self-care (01) ==
LOC: EC 14:45
DX: T78.1XXA Other adverse food reactions, not elsewhere classified, initial encounter (principal); J45.909 Unspecified asthma, uncomplicated; Z79.890 Hormone replacement therapy; Z79.899 Other long term (current) drug therapy; Z79.3 Long term (current) use of hormonal contraceptives; Z88.5 Allergy status to narcotic agent; Z88.6 Allergy status to analgesic agent; Z91.013 Allergy to seafood
CPT/HCPCS: 36415; 80053; 85025; 99283; 96374; 96375 ×2; J1200; J2930

== ENCOUNTER 2019-03-16 21:13 | Emergency (ER) | payer OTHER ==
[2019-03-16] MEDS ORDERED: SODIUM CHLORIDE 0.9% 500 ML 500 ML IV STA (21:56)
[2019-03-16] MEDS ORDERED: LORazepam 2 MG/ML INJ IV STA ×2 (21:56→23:08)
--- NOTE | 2019-03-16 22:07 | ED ---
General Adult HPI - General Chief complaint: Neuro Symptoms/Deficit Stated complaint: Sob/chest pain/lt arm numb Time Seen by Provider: 03/16/19 21:33 Source: patient Mode of arrival: ambulatory Limitations: no limitations - History of Present Illness Initial comments: This patient is a 23-year-old girl with history of inappropriate sinus tachycardia, who presents with complaint of having numbness and tingling to the perioral area as well as the bilateral hands and feet. Prior to arrival she also did have bilateral hand spasm. The patient had been seen here earlier in the evening. She felt she may have been having an ALLERGIC reaction that occu rred after she had eaten at [employer]. At that time, patient was just having the perioral and bilateral hand tingling. Patient received Benadryl and then went home. After developing the hand spasm and also the symptoms in the feet she felt she should be rechecked here. -: hour(s) Location: face, left, right, upper extremity, lower extremity - Related Data Home Medications Medication Instructions Recorded Confirmed Levothyroxine Sodium [Synthroid] 50 mcg PO HS 12/05/13 03/16/19 Norgestimate-Ethinyl Estradiol 1 tab PO HS 02/16/17 03/16/19 [Sprintec 28 Day Tablet] Ivabradine HCl [Corlanor] 5 mg PO BID 03/16/19 03/16/19 Previous Rx's Medication Instructions Recorded diphenhydrAMINE [Benadryl] 50 mg PO QID PRN #20 capsule 03/16/19 predniSONE 50 mg PO DAILY #3 tab 03/16/19 Allergies Allergy/AdvReac Type Severity Reaction Status Date / Time codeine phosphate Allergy Severe ABDOMINAL Verified 03/16/19 21:39 [From Tylenol-Codeine #3] PAIN, FAINTING shellfish derived Allergy Severe Anaphylaxis Verified 03/16/19 21:39 acetaminophen [From Vicodin] Allergy Nausea & Verified 03/16/19 21:39 Vomiting hydrocodone bitartrate Allergy Nausea & Verified 03/16/19 21:39 [From Vicodin] Vomiting Review of Systems ROS Statement: Those systems with pertinent positive or pertinent negative responses have been documented in the HPI. ROS Other: All systems not noted in ROS Statement are negative. Constitutional: Denies: fever, chills Respiratory: Denies: cough, dyspnea Cardiovascular: Denies: chest pain, palpitations, edema, syncope Gastrointestinal: Denies: abdominal pain, nausea, vomiting Genitourinary: Denies: dysuria, hematuria Musculoskeletal: Denies: back pain Skin: Denies: rash Neurological: Reports: paresthesias. Denies: headache, weakness, numbness Past Medical History Past Medical History: Asthma Additional Past Medical History / Comment(s): SVT History of Any Multi-Drug Resistant Organisms: MRSA Date of last positivie culture/infection: 06/11/09 MDRO Source:: THIGH Past Surgical History: Adenoidectomy, Cardiac Ablation, Cholecystectomy, Tonsillectomy Additional Past Surgical History / Comment(s): WISDOM TOOTH OUT 11/17/13, Ablasion due to SVT. Past Anesthesia/Blood Transfusion Reactions: Family History of Problems w/ Anesthesia, Motion Sickness Additional Past Anesthesia/Blood Transfusion Reaction / Comment(s): SLOW TO AWAKEN OCC.; sister n/v Past Psychological History: ADD/ADHD Smoking Status: Never smoker Past Alcohol Use History: None Reported Past Drug Use History: None Reported - Past Family History Mother Family Medical History: No Reported History General Exam Limitations: no limitations General appearance: alert, anxious Head exam: Present: atraumatic, normocephalic Eye exam: Present: normal appearance. Absent: scleral icterus, conjunctival injection ENT exam: Present: normal oropharynx, mucous membranes dry Neck exam: Present: normal inspection, full ROM Respiratory exam: Present: normal lung sounds bilaterally. Absent: respiratory distress, wheezes, rales, rhonchi, stridor Cardiovascular Exam: Present: normal rhythm, tachycardia (Rate approximately 116 bpm), normal heart sounds. Absent: systolic murmur, diastolic murmur, rubs, gallop GI/Abdominal exam: Present: soft. Absent: distended, tenderness, guarding, rebound, rigid Extremities exam: Present: normal inspection, normal capillary refill. Absent: pedal edema, calf tenderness Back exam: Present: normal inspection Neurological exam: Present: alert, oriented X3, CN II-XII intact. Absent: motor sensory deficit Psychiatric exam: Present: anxious Skin exam: Present: warm, dry, intact, normal color. Absent: rash Course Vital Signs 03/16/19 03/16/19 03/16/19 21:21 22:21 23:10 Temperature 99.8 F H Pulse Rate 138 H 118 H 134 H Pulse Rate [ Sitting] Pulse Rate [ Standing] Pulse Rate [ Supine] Respiratory 26 H 20 48 H Rate Blood Pressure 138/95 139/85 169/101 Blood Pressure [Sitting] Blood Pressure [Standing] Blood Pressure [Supine] O2 Sat by Pulse 96 96 96 Oximetry 03/16/19 03/16/19 03/17/19 23:20 23:54 00:05 Temperature 98.8 F Pulse Rate 92 98 98 Pulse Rate [ Sitting] Pulse Rate [ Standing] Pulse Rate [ Supine] Respiratory 20 16 16 Rate Blood Pressure 138/77 134/77 162/96 Blood Pressure [Sitting] Blood Pressure [Standing] Blood Pressure [Supine] O2 Sat by Pulse 94 L 96 95 Oximetry 03/17/19 03/17/19 03/17/19 00:50 02:10 02:28 Temperature Pulse Rate 112 H 94 Pulse Rate [ 112 H Sitting] Pulse Rate [ 112 H Standing] Pulse Rate [ 88 Supine] Respiratory 18 16 Rate Blood Pressure 149/77 157/88 Blood Pressure 150/99 [Sitting] Blood Pressure 165/107 [Standing] Blood Pressure 143/75 [Supine] O2 Sat by Pulse 97 94 L Oximetry EKG Findings - EKG Results: EKG: interpreted by ERMD, sinus rhythm, normal axis, normal QRS, normal ST/T EKG shows: tachycardia (Rate 118 bpm) Medical Decision Making - Lab Data Result diagrams: 03/16/19 22:15 03/16/19 22:15 Lab Results 03/16/19 03/16/19 03/16/19 Range/Units 22:10 22:15 22:15 WBC 10.5 (3.8-10.6) k/uL RBC 4.85 (3.80-5.40) m/uL Hgb 14.3 (11.4-16.0) gm/dL Hct 42.6 (34.0-46.0) % MCV 87.9 (80.0-100.0) fL MCH 29.6 (25.0-35.0) pg MCHC 33.6 (31.0-37.0) g/dL RDW 12.5 (11.5-15.5) % Plt Count 396 (150-450) k/uL Neutrophils % 89 % Lymphocytes % 9 % Monocytes % 1 % Eosinophils % 0 % Basophils % 0 % Neutrophils # 9.4 H (1.3-7.7) k/uL Lymphocytes # 1.0 (1.0-4.8) k/uL Monocytes # 0.1 (0-1.0) k/uL Eosinophils # 0.0 (0-0.7) k/uL Basophils # 0.0 (0-0.2) k/uL D-Dimer (<0.60) mg/L FEU Sodium 137 (137-145) mmol/L Potassium 4.1 (3.5-5.1) mmol/L Chloride 103 (98-107) mmol/L Carbon Dioxide 18 L (22-30) mmol/L Anion Gap 16 mmol/L BUN 8 (7-17) mg/dL Creatinine 0.66 (0.52-1.04) mg/dL Est GFR (CKD-EPI)AfAm >90 (>60 ml/min/1.73 sqM) Est GFR (CKD-EPI)NonAf >90 (>60 ml/min/1.73 sqM) Glucose 267 H (74-99) mg/dL POC Glucose (mg/dL) (75-99) mg/dL POC Glu [employer] Worker ID Calcium 9.6 (8.4-10.2) mg/dL Magnesium 1.8 (1.6-2.3) mg/dL Total Bilirubin 0.4 (0.2-1.3) mg/dL AST 30 (14-36) U/L ALT 20 (9-52) U/L Alkaline Phosphatase 110 (38-126) U/L Total Protein 7.8 (6.3-8.2) g/dL Albumin 4.2 (3.5-5.0) g/dL TSH 0.571 (0.465-4.680) mIU/L Urine HCG, Qual Not Detected (Not Detectd) Acetone, Qual (Negative) 03/16/19 03/16/19 03/17/19 Range/Units 22:15 22:15 02:32 WBC (3.8-10.6) k/uL RBC (3.80-5.40) m/uL Hgb (11.4-16.0) gm/dL Hct (34.0-46.0) % MCV (80.0-100.0) fL MCH (25.0-35.0) pg MCHC (31.0-37.0) g/dL RDW (11.5-15.5) % Plt Count (150-450) k/uL Neutrophils % % Lymphocytes % % Monocytes % % Eosinophils % % Basophils % % Neutrophils # (1.3-7.7) k/uL Lymphocytes # (1.0-4.8) k/uL Monocytes # (0-1.0) k/uL Eosinophils # (0-0.7) k/uL Basophils # (0-0.2) k/uL D-Dimer 0.22 (<0.60) mg/L FEU Sodium (137-145) mmol/L Potassium (3.5-5.1) mmol/L Chloride (98-107) mmol/L Carbon Dioxide (22-30) mmol/L Anion Gap mmol/L BUN (7-17) mg/dL Creatinine (0.52-1.04) mg/dL Est GFR (CKD-EPI)AfAm (>60 ml/min/1.73 sqM) Est GFR (CKD-EPI)NonAf (>60 ml/min/1.73 sqM) Glucose (74-99) mg/dL POC Glucose (mg/dL) 179 H (75-99) mg/dL POC Glu [employer] Worker ID Radha Hamilton Calcium (8.4-10.2) mg/dL Magnesium (1.6-2.3) mg/dL Total Bilirubin (0.2-1.3) mg/dL AST (14-36) U/L ALT (9-52) U/L Alkaline Phosphatase (38-126) U/L Total Protein (6.3-8.2) g/dL Albumin (3.5-5.0) g/dL TSH (0.465-4.680) mIU/L Urine HCG, Qual (Not Detectd) Acetone, Qual Negative (Negative) Disposition Clinical Impression: Paresthesia of both hands Disposition: HOME SELF-CARE Condition: Good Instructions (If sedation given, give patient instructions): Paresthesia (ED) Is patient prescribed a controlled substance at d/c from ED?: No Referrals: Tanvir Tay DO [Primary Care Provider] - 1-2 days
[2019-03-16] MEDS ORDERED: METOPROLOL TARTRATE 5 MG/5 ML VIAL IVP STA (23:12)
[2019-03-16 23:19] LABS: Basophils % (A) 0 %; Eosinophils % (A) 0 %; HCT 42.6 % (34.0-46.0); HGB 14.3 gm/dL (11.4-16.0); Lymphocytes % (A) 9 %; MCH 29.6 pg (25.0-35.0); MCHC 33.6 g/dL (31.0-37.0); MCV 87.9 fL (80.0-100.0); Mean Platelet Volume 6.9; Monocytes # (A) 0.1 k/uL (0-1.0); Monocytes % (A) 1 %; Neutrophils # (A) 9.4 k/uL (1.3-7.7); Neutrophils % (A) 89 %; Platelet Count 396 k/uL (150-450); RBC 4.85 m/uL (3.80-5.40); RDW 12.5 % (11.5-15.5); WBC 10.5 k/uL (3.8-10.6)
[2019-03-16 23:36] LABS: ALT 20 U/L (9-52); AST 30 U/L (14-36); African American GFR (CKD) >90 (>60 ml/min/1.73 sqM); Albumin 4.2 g/dL (3.5-5.0); Alkaline Phosphatase 110 U/L (38-126); Anion Gap 16 mmol/L; Blood Urea Nitrogen 8 mg/dL (7-17); Calcium 9.6 mg/dL (8.4-10.2); Carbon Dioxide 18 mmol/L (22-30); Chloride 103 mmol/L (98-107); Glucose 267 mg/dL (74-99); Magnesium 1.8 mg/dL (1.6-2.3); Potassium 4.1 mmol/L (3.5-5.1); Sodium 137 mmol/L (137-145); Total Bilirubin 0.4 mg/dL (0.2-1.3); Total Protein 7.8 g/dL (6.3-8.2)
[2019-03-17] MEDS ORDERED: SODIUM CHLORIDE 0.9% 1,000 ML IV ONE ×2 (00:01→02:26)
[2019-03-17 02:29] VITALS: RESP 16
[2019-03-17 02:34] LABS: Glucose,Whole Blood 179 mg/dL (75-99)
[2019-03-17 03:32] VITALS: BP 135/83; PULSE 83; TEMP 97.3
== END 2019-03-17 03:44 | disposition home or self-care (01) ==
LOC: EC 21:13
DX: R20.2 Paresthesia of skin (principal); R00.0 Tachycardia, unspecified; R20.0 Anesthesia of skin; R25.2 Cramp and spasm; Z88.5 Allergy status to narcotic agent; Z88.6 Allergy status to analgesic agent; Z91.013 Allergy to seafood; Z79.3 Long term (current) use of hormonal contraceptives; Z79.899 Other long term (current) drug therapy; Z86.14 Personal history of Methicillin resistant Staphylococcus aureus infection; Z98.890 Other specified postprocedural states
CPT/HCPCS: 36415 ×2; 93005; 85379; 80053; 84443; 82009; 83735; 85025; 81025; 99284; 96374; 96375; 96376; 96361 ×3; J2060

== ENCOUNTER → 2019-05-29 | Outpatient (CLI) | payer OTHER ==
[2019-05-29 19:25] LABS: Calcium 9.4 mg/dL (8.7-10.3)
[2019-05-29 21:57] LABS: Hemoglobin A1C 5.7 % (4.0-6.0)
== END | disposition home or self-care (01) ==
LOC: LABWHC1 11:24
PROVIDERS: ATTEND Family Medicine
DX: Z09 Encounter for follow-up examination after completed treatment for conditions other than malignant neoplasm (principal); Z82.69 Family history of other diseases of the musculoskeletal system and connective tissue
CPT/HCPCS: 36415; 82310; 82390; 82525; 82550; 83036

== ENCOUNTER → 2019-06-09 | Outpatient (CLI) | payer OTHER | END | disposition home or self-care (01) | LOC: LABWHC1 11:16 | PROVIDERS: ATTEND Family Medicine | DX: R79.0 Abnormal level of blood mineral (principal); Z82.69 Family history of other diseases of the musculoskeletal system and connective tissue | CPT/HCPCS: 36415; 82525 ==

== ENCOUNTER 2019-06-17 10:34 | Emergency (ER) | payer OTHER ==
[2019-06-17 11:08] VITALS: TEMP 98.9
--- NOTE | 2019-06-17 11:54 | ED ---
URI HPI - General Chief Complaint: Upper Respiratory Infection Stated Complaint: cough, congestion Time Seen by Provider: 06/17/19 11:29 Source: patient Mode of arrival: ambulatory Limitations: no limitations - History of Present Illness Initial Comments: Patient is a 24-year-old female presenting to the emergency Department with complaints of a cough x 2 weeks. Patient did go to her PCP when her symptoms first started and was placed on a Z-Dylan and steroids. Her symptoms have persisted. She's been having intermittent hot flashes and chills. In addition, the last few days she is complaining that her "lungs hurt." She did call her PCP again who put her on a second dose of the Z-Dylan and steroids which she is currently taking. She continues to have a chronic cough and is still not feeling well. She does have history of mild asthma. No other complaints at this time. She denies nausea, vomiting, diarrhea, shortness of breath. Upon arrival to ER, her vital signs are stable. - Related Data Home Medications Medication Instructions Recorded Confirmed Levothyroxine Sodium [Synthroid] 50 mcg PO HS 12/05/13 03/16/19 Norgestimate-Ethinyl Estradiol 1 tab PO HS 02/16/17 03/16/19 [Sprintec 28 Day Tablet] Ivabradine HCl [Corlanor] 5 mg PO BID 03/16/19 03/16/19 Previous Rx's Medication Instructions Recorded diphenhydrAMINE [Benadryl] 50 mg PO QID PRN #20 capsule 03/16/19 predniSONE 50 mg PO DAILY #3 tab 03/16/19 Albuterol Inhaler [Ventolin Hfa 1 - 2 puff INHALATION RT-Q6H PRN 06/17/19 Inhaler] #1 inhaler Allergies Allergy/AdvReac Type Severity Reaction Status Date / Time codeine phosphate Allergy Severe ABDOMINAL Verified 06/17/19 11:05 [From Tylenol-Codeine #3] PAIN, FAINTING shellfish derived Allergy Severe Anaphylaxis Verified 06/17/19 11:05 acetaminophen [From Vicodin] Allergy Nausea & Verified 06/17/19 11:05 Vomiting hydrocodone bitartrate Allergy Nausea & Verified 06/17/19 11:05 [From Vicodin] Vomiting Review of Systems ROS Statement: Those systems with pertinent positive or pertinent negative responses have been documented in the HPI. ROS Other: All systems not noted in ROS Statement are negative. Past Medical History Past Medical History: Asthma Additional Past Medical History / Comment(s): SVT History of Any Multi-Drug Resistant Organisms: MRSA Date of last positivie culture/infection: 06/11/09 MDRO Source:: THIGH Past Surgical History: Adenoidectomy, Cardiac Ablation, Cholecystectomy, Tonsillectomy Additional Past Surgical History / Comment(s): WISDOM TOOTH OUT 11/17/13, Ablasion due to SVT. Past Anesthesia/Blood Transfusion Reactions: Family History of Problems w/ Anesthesia, Motion Sickness Additional Past Anesthesia/Blood Transfusion Reaction / Comment(s): SLOW TO AWAKEN OCC.; sister n/v Past Psychological History: ADD/ADHD Smoking Status: Never smoker Past Alcohol Use History: None Reported Past Drug Use History: None Reported - Past Family History Mother Family Medical History: No Reported History General Exam - General Exam Comments Initial Comments: GENERAL: Well-appearing, well-nourished and in no acute distress. HEAD: Atraumatic, normocephalic. EYES: Pupils equal round and reactive to light, extraocular movements intact, sclera anicteric, conjunctiva are normal. ENT: Nares patent, oropharynx clear without exudates. Moist mucous membranes. NECK: Normal range of motion, supple without lymphadenopathy or JVD. LUNGS: Breath sounds clear to auscultation bilaterally and equal. No wheezes rales or rhonchi. HEART: Regular rate and rhythm without murmurs, rubs or gallops. ABDOMEN: Soft, nontender, normoactive bowel sounds. No guarding, no rebound. No masses appreciated. : Deferred EXTREMITIES: Normal range of motion, no pitting or edema. No clubbing or cyanosis. NEUROLOGICAL: Normal speech, normal gait. PSYCH: Normal mood, normal affect. SKIN: Warm, Dry, normal turgor, no rashes or lesions noted. Limitations: no limitations Course Vital Signs 06/17/19 06/17/19 06/17/19 11:05 11:08 12:08 Temperature 98.9 F Pulse Rate 87 66 Respiratory 18 20 20 Rate Blood Pressure 163/97 132/84 O2 Sat by Pulse 96 Oximetry 06/17/19 13:34 Temperature Pulse Rate Respiratory 20 Rate Blood Pressure O2 Sat by Pulse Oximetry Medical Decision Making - Medical Decision Making Patient is a 24-year-old female presenting with a cough 2 weeks. She is on her second round of antibiotics and steroids from her PCP. Vital signs are stable today. Patient's exam is unremarkable. She does have history of mild asthma. Chest x-ray shows no acute changes. Influenza is negative. I discussed these findings with patient. I suggested she continue with current antibiotic and steroid regimen. I did give her prescription for an inhaler to help with cough and and shortness of breath. She is in agreement this plan of care. She will follow-up with her PCP if symptoms persist. I also recommended an [id number] cough suppressant. Return parameters were discussed with the patient she verbalized understanding. She is stable for discharge at this time. - Lab Data Lab Results 06/17/19 Range/Units 11:10 Influenza Type A RNA Not Detected (Not Detectd) Influenza Type B (PCR) Not Detected (Not Detectd) Disposition Clinical Impression: Bronchitis Disposition: HOME SELF-CARE Condition: Stable Instructions (If sedation given, give patient instructions): Upper Respiratory Infection (ED) Additional Instructions: Please return to the Emergency Department if symptoms worsen or any other concerns. Continue with antibiotic and steroids that you have now. Use inhaler as needed for cough and shortness of breath. Prescriptions: Albuterol Inhaler [Ventolin Hfa Inhaler] 1 - 2 puff INHALATION RT-Q6H PRN #1 inhaler PRN Reason: Cough Is patient prescribed a controlled substance at d/c from ED?: No Referrals: Tanvir Tay DO [Primary Care Provider] - 1-2 days
[2019-06-17 12:20] VITALS: RESP 20
--- NOTE | 2019-06-17 12:22 | XR ---
EXAMINATION TYPE: XR chest 2V DATE OF EXAM: 06/17/2019 COMPARISON: 02/16/2018 HISTORY: Cough and fever TECHNIQUE: Frontal and lateral views of the chest are obtained. FINDINGS: There is no focal air space opacity, pleural effusion, or pneumothorax seen. The cardiac silhouette size is within normal limits. The osseous structures are intact. Cholecystectomy clips a re seen. IMPRESSION: No acute cardiopulmonary process.
[2019-06-17 12:43] VITALS: BP 132/84; PULSE 66
== END 2019-06-17 13:35 | disposition home or self-care (01) ==
LOC: EC 10:34
DX: J40 Bronchitis, not specified as acute or chronic (principal); Z79.890 Hormone replacement therapy; Z79.899 Other long term (current) drug therapy; Z88.5 Allergy status to narcotic agent; Z88.6 Allergy status to analgesic agent; Z91.013 Allergy to seafood
CPT/HCPCS: 71046; 87502; 99283

== ENCOUNTER → 2020-01-14 | Outpatient (CLI) | payer OTHER | END | disposition home or self-care (01) | LOC: LABWHC1 11:03 | PROVIDERS: ATTEND Family Medicine | DX: R05 Cough (principal); R50.9 Fever, unspecified; Z11.59 Encounter for screening for other viral diseases | CPT/HCPCS: U0003; C9803 ==

== ENCOUNTER → 2020-02-03 | Outpatient (CLI) | payer OTHER ==
[2020-02-03 12:05] LABS: Basophils % (A) 0 %; Eosinophils # (A) 0.1 k/uL (0-0.7); Eosinophils % (A) 1 %; HCT 42.5 % (34.0-46.0); HGB 13.5 gm/dL (11.4-16.0); Lymphocytes # (A) 2.2 k/uL (1.0-4.8); Lymphocytes % (A) 27 %; MCH 27.4 pg (25.0-35.0); MCHC 31.8 g/dL (31.0-37.0); MCV 86.3 fL (80.0-100.0); Mean Platelet Volume 7.3; Monocytes # (A) 0.4 k/uL (0-1.0); Monocytes % (A) 4 %; Neutrophils # (A) 5.5 k/uL (1.3-7.7); Neutrophils % (A) 66 %; Platelet Count 375 k/uL (150-450); RBC 4.92 m/uL (3.80-5.40); RDW 13.4 % (11.5-15.5); Reticulocyte % 2.3 % (0.5-2.0); WBC 8.2 k/uL (3.8-10.6)
[2020-02-03 18:15] LABS: Hemoglobin A1C 5.7 % (4.0-6.0)
[2020-02-03 18:34] LABS: African American GFR (CKD) 118.8 (60.0-200.0); Albumin 4.1 g/dL (3.80-4.90); Albumin/Globulin Ratio 1.64 (1.60-3.17); Anion Gap 9.3 mmol/L (4.00-12.00); BUN/Creat Ratio 12.5 Ratio (12.00-20.00); Calcium 9.4 mg/dL (8.7-10.3); Carbon Dioxide 26.7 mmol/L (21.6-31.8); Globulin 2.5 g/dL (1.6-3.3); Magnesium 1.8 mg/dL (1.5-2.4); Non-African American GFR(CKD) 102.5 (60.0-200.0); Potassium 3.9 mmol/L (3.5-5.5); Total Bilirubin 0.3 mg/dL (0.3-1.2); Total Protein 6.6 g/dL (6.2-8.2)
[2020-02-03 18:35] LABS: % Iron Saturation 9.47 (12.00-45.00)
[2020-02-03 18:42] LABS: Ferritin 13.1 ng/mL (10.0-291.0)
[2020-02-03 19:08] LABS: Anti-DNA, DS unit <1.0 IU/mL; DNA Double-Stranded NEGATIVE (NEGATIVE)
[2020-02-04 00:42] LABS: Erythrocyte Sedimentation Rate 14 mm/Hr (0-20)
== END | disposition home or self-care (01) ==
LOC: LABWHC1 10:38
PROVIDERS: ATTEND Family Medicine
DX: R51 Headache (principal); D64.9 Anemia, unspecified; R25.3 Fasciculation
CPT/HCPCS: 36415; 80053; 82728; 83036; 83540; 83550; 83735; 85025; 85045; 85379; 85652; 86038; 86225; 86431

== ENCOUNTER → 2020-04-07 | Outpatient (CLI) | payer OTHER ==
--- NOTE | 2020-04-07 09:32 | XR ---
EXAMINATION TYPE: XR chest 2V DATE OF EXAM: 04/07/2020 COMPARISON: 06/17/2019 INDICATION: Pleurisy asthma inappropriate sinus tachycardia TECHNIQUE: Frontal and lateral views of the chest are obtained. FINDINGS: The heart size is normal. The pulmonary vasculature is normal. The lungs are clear. IMPRESSION: 1. No acute pulmonary process.
== END | disposition home or self-care (01) ==
LOC: RADXRMAIN 09:03
PROVIDERS: ATTEND Family Medicine
DX: R09.1 Pleurisy (principal)
CPT/HCPCS: 71046

== ENCOUNTER 2021-03-11 13:44 | Emergency (ER) | payer OTHER ==
[2021-03-11] MEDS ORDERED: SODIUM CHLORIDE 0.9% 1,000 ML IV STA (13:54)
[2021-03-11] MEDS ORDERED: FAMOTIDINE 20 MG/2 ML VIAL IV STA (13:54)
[2021-03-11 14:37] LABS: Basophils % (A) 0 %; Eosinophils # (A) 0.1 k/uL (0-0.7); Eosinophils % (A) 1 %; HCT 37.6 % (34.0-46.0); HGB 13.1 gm/dL (11.4-16.0); Lymphocytes # (A) 2.1 k/uL (1.0-4.8); Lymphocytes % (A) 18 %; MCH 29.6 pg (25.0-35.0); MCHC 34.9 g/dL (31.0-37.0); MCV 84.6 fL (80.0-100.0); Mean Platelet Volume 7.3; Monocytes # (A) 0.3 k/uL (0-1.0); Monocytes % (A) 2 %; Neutrophils # (A) 9.5 k/uL (1.3-7.7); Neutrophils % (A) 78 %; Platelet Count 353 k/uL (150-450); RBC 4.45 m/uL (3.80-5.40); RDW 13.5 % (11.5-15.5); WBC 12.2 k/uL (3.8-10.6)
[2021-03-11 14:49] LABS: ALT 13 U/L (4-34); AST 22 U/L (14-36); African American GFR (CKD) >90 (>60 ml/min/1.73 sqM); Albumin 3.4 g/dL (3.5-5.0); Alkaline Phosphatase 80 U/L (38-126); Anion Gap 10 mmol/L; Blood Urea Nitrogen 14 mg/dL (7-17); Calcium 8.5 mg/dL (8.4-10.2); Carbon Dioxide 19 mmol/L (22-30); Chloride 108 mmol/L (98-107); Glucose 184 mg/dL (74-99); Non-African American GFR(CKD) >90 (>60 ml/min/1.73 sqM); Potassium 3.4 mmol/L (3.5-5.1); Sodium 137 mmol/L (137-145); Total Bilirubin 0.3 mg/dL (0.2-1.3); Total Protein 6.4 g/dL (6.3-8.2)
--- NOTE | 2021-03-11 15:02 | ED ---
Allergic Reaction HPI - General Chief complaint: Allergic Reaction Stated complaint: allergic reaction Time Seen by Provider: 03/11/21 13:47 Source: patient, EMS, RN notes reviewed Mode of arrival: EMS Limitations: no limitations - History of Present Illness Initial Comments: Patient is a 25 she'll female that presents to the emergency department compla ining of ALLERGIC reaction. 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 They called the restaurant to make sure that they did not cross contaminant well with any shellfish. Patient notes that she did use her EpiPen if she so she was having an ALLERGIC reaction. Upon arrival patient states she was not having any difficulty breathing swollen talking. She was otherwise a well-appearing 25 she'll female. She denied any chest pain headache nausea vomiting diarrhea constipation fever fatigue chills. - Related Data Home Medications Medication Instructions Recorded Confirmed Levothyroxine Sodium [Synthroid] 50 mcg PO HS 12/05/13 03/16/19 Norgestimate-Ethinyl Estradiol 1 tab PO HS 02/16/17 03/16/19 [Sprintec 28 Day Tablet] Ivabradine HCl [Corlanor] 5 mg PO BID 03/16/19 03/16/19 Previous Rx's Medication Instructions Recorded diphenhydrAMINE [Benadryl] 50 mg PO QID PRN #20 capsule 03/16/19 predniSONE 50 mg PO DAILY #3 tab 03/16/19 Albuterol Inhaler (Mhu) [Ventolin 1 - 2 puff INHALATION RT-Q6H PRN 06/17/19 Hfa Inhaler (Mhu)] #1 inhaler Allergies Allergy/AdvReac Type Severity Reaction Status Date / Time codeine phosphate Allergy Severe ABDOMINAL Verified 06/17/19 11:05 [From Tylenol-Codeine #3] PAIN, FAINTING shellfish derived Allergy Severe Anaphylaxis Verified 06/17/19 11:05 acetaminophen [From Vicodin] Allergy Nausea & Verified 06/17/19 11:05 Vomiting hydrocodone bitartrate Allergy Nausea & Verified 06/17/19 11:05 [From Vicodin] Vomiting Review of Systems ROS Statement: Those systems with pertinent positive or pertinent negative responses have been documented in the HPI. ROS Other: All systems not noted in ROS Statement are negative. Past Medical History Past Medical History: Asthma, Hypertension, Supraventricular Tachycardia (SVT) Additional Past Medical History / Comment(s): SVT History of Any Multi-Drug Resistant Organisms: MRSA Date of last positivie culture/infection: 06/11/09 MDRO Source:: THIGH Past Surgical History: Adenoidectomy, Cardiac Ablation, Cholecystectomy, Tonsillectomy Additional Past Surgical History / Comment(s): WISDOM TOOTH OUT 11/17/13, Ablasion due to SVT. Past Anesthesia/Blood Transfusion Reactions: Family History of Problems w/ Anesthesia, Motion Sickness Additional Past Anesthesia/Blood Transfusion Reaction / Comment(s): SLOW TO AWAKEN OCC.; sister n/v Past Psychological History: ADD/ADHD Smoking Status: Never smoker Past Alcohol Use History: None Reported Past Drug Use History: None Reported - Past Family History Mother Family Medical History: No Reported History General Exam Limitations: no limitations General appearance: alert, in no apparent distress, obese Head exam: Present: atraumatic, normocephalic, normal inspection Eye exam: Present: normal appearance, PERRL, EOMI. Absent: scleral icterus, conjunctival injection, periorbital swelling ENT exam: Present: normal exam, mucous membranes moist Neck exam: Present: normal inspection. Absent: tenderness, meningismus, lymphadenopathy Respiratory exam: Present: normal lung sounds bilaterally. Absent: respiratory distress, wheezes, rales, rhonchi, stridor Cardiovascular Exam: Present: regular rate, normal rhythm, normal heart sounds. Absent: systolic murmur, diastolic murmur, rubs, gallop, clicks GI/Abdominal exam: Present: soft, normal bowel sounds. Absent: distended, tenderness, guarding, rebound, rigid Extremities exam: Present: normal inspection, full ROM, normal capillary refill. Absent: tenderness, pedal edema, joint swelling, calf tenderness Neurological exam: Present: alert, oriented X3 Psychiatric exam: Present: normal affect, normal mood Skin exam: Present: warm, dry, intact, normal color. Absent: rash Course Vital Signs 03/11/21 13:47 Pulse Rate 113 H Respiratory 20 Rate Blood Pressure 183/101 O2 Sat by Pulse 98 Oximetry Medical Decision Making - Medical Decision Making 25 she'll female with ALLERGIC reaction to shellfish presenting via EMS. Patient did use EpiPen prior to EMS pickup. EMS did give 125 mg of Solu-Medrol, 50 mg of Benadryl. 1 L normal saline, 20 mg of Pepcid ordered. Upon reevaluation patient states that she is feeling much better and is ready to go home. Case discussed with Dr. Ortiz outpatient discharge home with follow-up to primary care. - Lab Data Result diagrams: 03/11/21 14:33 03/11/21 14:33 Lab Results 03/11/21 03/11/21 Range/Units 14:33 14:33 WBC 12.2 H (3.8-10.6) k/uL RBC 4.45 (3.80-5.40) m/uL Hgb 13.1 (11.4-16.0) gm/dL Hct 37.6 (34.0-46.0) % MCV 84.6 (80.0-100.0) fL MCH 29.6 (25.0-35.0) pg MCHC 34.9 (31.0-37.0) g/dL RDW 13.5 (11.5-15.5) % Plt Count 353 (150-450) k/uL MPV 7.3 Neutrophils % 78 % Lymphocytes % 18 % Monocytes % 2 % Eosinophils % 1 % Basophils % 0 % Neutrophils # 9.5 H (1.3-7.7) k/uL Lymphocytes # 2.1 (1.0-4.8) k/uL Monocytes # 0.3 (0-1.0) k/uL Eosinophils # 0.1 (0-0.7) k/uL Basophils # 0.0 (0-0.2) k/uL Sodium 137 (137-145) mmol/L Potassium 3.4 L (3.5-5.1) mmol/L Chloride 108 H (98-107) mmol/L Carbon Dioxide 19 L (22-30) mmol/L Anion Gap 10 mmol/L BUN 14 (7-17) mg/dL Creatinine 0.59 (0.52-1.04) mg/dL Est GFR (CKD-EPI)AfAm >90 (>60 ml/min/1.73 sqM) Est GFR (CKD-EPI)NonAf >90 (>60 ml/min/1.73 sqM) Glucose 184 H (74-99) mg/dL Calcium 8.5 (8.4-10.2) mg/dL Total Bilirubin 0.3 (0.2-1.3) mg/dL AST 22 (14-36) U/L ALT 13 (4-34) U/L Alkaline Phosphatase 80 (38-126) U/L Total Protein 6.4 (6.3-8.2) g/dL Albumin 3.4 L (3.5-5.0) g/dL Disposition Clinical Impression: Allergic reaction Disposition: HOME SELF-CARE Condition: Stable Instructions (If sedation given, give patient instructions): Anaphylaxis (ED) Additional Instructions: Please return to the Emergency Department if symptoms worsen or any other concerns. Follow-up with primary care 1-2 days. Take Benadryl for the next several days as needed. Is patient prescribed a controlled substance at d/c from ED?: No Referrals: Tanvir Tay DO [Primary Care Provider] - 1-2 days Time of Disposition: 15:01
[2021-03-11 15:03] VITALS: BP 138/91; PULSE 98; RESP 18
[2021-03-11 15:14] VITALS: TEMP 98.4
== END 2021-03-11 15:14 | disposition home or self-care (01) ==
LOC: EC 13:44
DX: T78.02XA Anaphylactic reaction due to shellfish (crustaceans), initial encounter (principal); I10 Essential (primary) hypertension; J45.909 Unspecified asthma, uncomplicated; F90.9 Attention-deficit hyperactivity disorder, unspecified type; Z88.5 Allergy status to narcotic agent; Z91.013 Allergy to seafood; Z90.89 Acquired absence of other organs
CPT/HCPCS: 36415; 80053; 85025; 96361; 96374; 99283

== ENCOUNTER 2022-03-11 21:13 | Emergency (ER) | payer OTHER ==
[2022-03-11 21:17] VITALS: TEMP 98.2
[2022-03-11] MEDS ORDERED: SODIUM CHLORIDE 0.9% 1,000 ML IV STA ×3 (21:23→22:23)
--- NOTE | 2022-03-11 21:24 | ED ---
SOB HPI - General Chief Complaint: Shortness of Breath Stated Complaint: ERICK Time Seen by Provider: 03/11/22 21:23 Source: patient, RN notes reviewed, old records reviewed Mode of arrival: ambulatory Limitations: no limitations - History of Present Illness Initial Comments: This is a 26-year-old female DF for evaluation complaining of inability to catch her breath. States she has history of asthma history of SVT was feel similar. She states she can't catch her breath and dizziness condition she is a poor story currently. Chest: The past has come to the ER for similar situations in the past. No recent fevers no chest pain or travel history no other complaints. MD Complaint: shortness of breath, "asthma attack", anxiety -: days(s) Severity: moderate Severity scale (1-10): 7 Quality: aching Consistency: constant Improves With: nothing Worsens With: nothing Known History Of: asthma, other (svt) Context: recent URI, recent illness Associated Symptoms: chest pain, pain with inspiration, cough, sputum production, diaphoresis, nausea/vomiting Treatments Prior to Arrival: none - Related Data Home Medications Medication Instructions Recorded Confirmed Levothyroxine Sodium [Synthroid] 50 mcg PO HS 12/05/13 03/16/19 norgestimate-ethinyl estradioL 1 tab PO HS 02/16/17 03/16/19 [Sprintec 28 Day Tablet] Ivabradine HCl [Corlanor] 5 mg PO BID 03/16/19 03/16/19 Previous Rx's Medication Instructions Recorded diphenhydrAMINE [Benadryl] 50 mg PO QID PRN #20 capsule 03/16/19 predniSONE 50 mg PO DAILY #3 tab 03/16/19 Albuterol Inhaler [Ventolin Hfa 1 - 2 puff INHALATION RT-Q6H PRN 06/17/19 Inhaler] #1 inhaler Allergies Allergy/AdvReac Type Severity Reaction Status Date / Time codeine phosphate Allergy Severe ABDOMINAL Verified 03/11/22 21:15 [From Tylenol-Codeine #3] PAIN, FAINTING shellfish derived Allergy Severe Anaphylaxis Verified 03/11/22 21:15 acetaminophen [From Vicodin] Allergy Nausea & Verified 03/11/22 21:15 Vomiting hydrocodone bitartrate Allergy Nausea & Verified 03/11/22 21:15 [From Vicodin] Vomiting Review of Systems ROS Statement: Those systems with pertinent positive or pertinent negative responses have been documented in the HPI. ROS Other: All systems not noted in ROS Statement are negative. Past Medical History Past Medical History: Asthma, Hypertension, Supraventricular Tachycardia (SVT) Additional Past Medical History / Comment(s): SVT History of Any Multi-Drug Resistant Organisms: MRSA Date of last positivie culture/infection: 06/11/09 MDRO Source:: THIGH Past Surgical History: Adenoidectomy, Cardiac Ablation, Cholecystectomy, Tonsillectomy Additional Past Surgical History / Comment(s): WISDOM TOOTH OUT 11/17/13, Ablasion due to SVT. Past Anesthesia/Blood Transfusion Reactions: Family History of Problems w/ Anesthesia, Motion Sickness Additional Past Anesthesia/Blood Transfusion Reaction / Comment(s): SLOW TO AWAKEN OCC.; sister n/v Past Psychological History: ADD/ADHD Smoking Status: Never smoker Past Alcohol Use History: None Reported Past Drug Use History: None Reported - Past Family History Mother Family Medical History: No Reported History General Exam Limitations: no limitations General appearance: alert, in no apparent distress, anxious Head exam: Present: atraumatic, normocephalic, normal inspection Eye exam: Present: normal appearance, PERRL, EOMI. Absent: scleral icterus, conjunctival injection, periorbital swelling ENT exam: Present: normal exam, mucous membranes dry Neck exam: Present: normal inspection. Absent: tenderness, meningismus, lymphadenopathy Respiratory exam: Present: normal lung sounds bilaterally. Absent: respiratory distress, wheezes, rales, rhonchi, stridor Cardiovascular Exam: Present: normal rhythm, tachycardia, normal heart sounds. Absent: systolic murmur, diastolic murmur, rubs, gallop, clicks GI/Abdominal exam: Present: soft, normal bowel sounds. Absent: distended, tenderness, guarding, rebound, rigid Extremities exam: Present: normal inspection, full ROM, normal capillary refill. Absent: tenderness, pedal edema, joint swelling, calf tenderness Back exam: Present: normal inspection Neurological exam: Present: alert, oriented X3, CN II-XII intact Psychiatric exam: Present: normal affect, normal mood Skin exam: Present: warm, dry, intact, normal color. Absent: rash Course Vital Signs 03/11/22 03/11/22 03/11/22 21:15 21:31 22:58 Temperature 98.2 F Pulse Rate 145 H 110 H 100 Respiratory 42 H 20 20 Rate Blood Pressure 141/105 144/90 160/88 O2 Sat by Pulse 100 98 98 Oximetry 03/12/22 01:22 Temperature Pulse Rate Respiratory 16 Rate Blood Pressure O2 Sat by Pulse 98 Oximetry - Reevaluation(s) Reevaluation #1: 03/12/22 Medical record is reviewed Patient symptoms are improved here in the ER Patient informed of results and questions are answered Medical Decision Making - Medical Decision Making 26 female to the emergency department for evaluation coming in for shortness of breath asthma attack SVT symptoms resolved here in the ER she feels improved and can be discharged home - Lab Data Result diagrams: 03/11/22 21:37 03/11/22 21:37 Lab Results 03/11/22 03/11/22 03/11/22 Range/Units 21:37 21:37 21:37 WBC 11.6 H (3.8-10.6) k/uL RBC 5.16 (3.80-5.40) m/uL Hgb 14.4 (11.4-16.0) gm/dL Hct 44.5 (34.0-46.0) % MCV 86.1 (80.0-100.0) fL MCH 27.8 (25.0-35.0) pg MCHC 32.3 (31.0-37.0) g/dL RDW 12.2 (11.5-15.5) % Plt Count 417 (150-450) k/uL MPV 7.9 Neutrophils % 77 % Lymphocytes % 16 % Monocytes % 4 % Eosinophils % 1 % Basophils % 0 % Neutrophils # 8.9 H (1.3-7.7) k/uL Lymphocytes # 1.9 (1.0-4.8) k/uL Monocytes # 0.4 (0-1.0) k/uL Eosinophils # 0.1 (0-0.7) k/uL Basophils # 0.0 (0-0.2) k/uL PT 10.1 (9.0-12.0) sec INR 0.9 (<1.2) APTT 22.8 (22.0-30.0) sec D-Dimer 0.48 (<0.60) mg/L FEU Sodium 136 L (137-145) mmol/L Potassium 3.9 (3.5-5.1) mmol/L Chloride 100 (98-107) mmol/L Carbon Dioxide 16 L (22-30) mmol/L Anion Gap 20 mmol/L BUN 9 (7-17) mg/dL Creatinine 0.63 (0.52-1.04) mg/dL Est GFR (CKD-EPI)AfAm >90 (>60 ml/min/1.73 sqM) Est GFR (CKD-EPI)NonAf >90 (>60 ml/min/1.73 sqM) Glucose 195 H (74-99) mg/dL Lactic Ac Sepsis Rflx Plasma Lactic Acid Dewayne (0.7-2.0) mmol/L Calcium 10.0 (8.4-10.2) mg/dL Magnesium 1.9 (1.6-2.3) mg/dL Total Bilirubin 0.4 (0.2-1.3) mg/dL AST 31 (14-36) U/L ALT 28 (4-34) U/L Alkaline Phosphatase 123 (38-126) U/L Troponin I (0.000-0.034) ng/mL NT-Pro-B Natriuret Pep pg/mL Total Protein 7.8 (6.3-8.2) g/dL Albumin 4.6 (3.5-5.0) g/dL TSH 0.378 L (0.465-4.680) mIU/L Free T4 1.02 (0.78-2.19) ng/dL Urine Color Urine Appearance (Clear) Urine pH (5.0-8.0) Ur Specific Ceres (1.001-1.035) Urine Protein (Negative) Urine Glucose (UA) (Negative) Urine Ketones (Negative) Urine Blood (Negative) Urine Nitrite (Negative) Urine Bilirubin (Negative) Urine Urobilinogen (<2.0) mg/dL Ur Leukocyte Esterase (Negative) Urine RBC (0-5) /hpf Urine WBC (0-5) /hpf Ur Squamous Epith Cells (0-4) /hpf Urine Bacteria (None) /hpf Hyaline Casts (0-2) /lpf Urine Mucus (None) /hpf Urine HCG, Qual (Not Detectd) Coronavirus (PCR) (Not Detectd) 03/11/22 03/11/22 03/11/22 Range/Units 21:37 21:37 21:37 WBC (3.8-10.6) k/uL RBC (3.80-5.40) m/uL Hgb (11.4-16.0) gm/dL Hct (34.0-46.0) % MCV (80.0-100.0) fL MCH (25.0-35.0) pg MCHC (31.0-37.0) g/dL RDW (11.5-15.5) % Plt Count (150-450) k/uL MPV Neutrophils % % Lymphocytes % % Monocytes % % Eosinophils % % Basophils % % Neutrophils # (1.3-7.7) k/uL Lymphocytes # (1.0-4.8) k/uL Monocytes # (0-1.0) k/uL Eosinophils # (0-0.7) k/uL Basophils # (0-0.2) k/uL PT (9.0-12.0) sec INR (<1.2) APTT (22.0-30.0) sec D-Dimer (<0.60) mg/L FEU Sodium (137-145) mmol/L Potassium (3.5-5.1) mmol/L Chloride (98-107) mmol/L Carbon Dioxide (22-30) mmol/L Anion Gap mmol/L BUN (7-17) mg/dL Creatinine (0.52-1.04) mg/dL Est GFR (CKD-EPI)AfAm (>60 ml/min/1.73 sqM) Est GFR (CKD-EPI)NonAf (>60 ml/min/1.73 sqM) Glucose (74-99) mg/dL Lactic Ac Sepsis Rflx Plasma Lactic Acid Dewayne 6.8 H* (0.7-2.0) mmol/L Calcium (8.4-10.2) mg/dL Magnesium (1.6-2.3) mg/dL Total Bilirubin (0.2-1.3) mg/dL AST (14-36) U/L ALT (4-34) U/L Alkaline Phosphatase (38-126) U/L Troponin I <0.012 (0.000-0.034) ng/mL NT-Pro-B Natriuret Pep 43 pg/mL Total Protein (6.3-8.2) g/dL Albumin (3.5-5.0) g/dL TSH (0.465-4.680) mIU/L Free T4 (0.78-2.19) ng/dL Urine Color Urine Appearance (Clear) Urine pH (5.0-8.0) Ur Specific Ceres (1.001-1.035) Urine Protein (Negative) Urine Glucose (UA) (Negative) Urine Ketones (Negative) Urine Blood (Negative) Urine Nitrite (Negative) Urine Bilirubin (Negative) Urine Urobilinogen (<2.0) mg/dL Ur Leukocyte Esterase (Negative) Urine RBC (0-5) /hpf Urine WBC (0-5) /hpf Ur Squamous Epith Cells (0-4) /hpf Urine Bacteria (None) /hpf Hyaline Casts (0-2) /lpf Urine Mucus (None) /hpf Urine HCG, Qual (Not Detectd) Coronavirus (PCR) (Not Detectd) 03/11/22 03/11/22 03/11/22 Range/Units 22:22 22:58 23:34 WBC (3.8-10.6) k/uL RBC (3.80-5.40) m/uL Hgb (11.4-16.0) gm/dL Hct (34.0-46.0) % MCV (80.0-100.0) fL MCH (25.0-35.0) pg MCHC (31.0-37.0) g/dL RDW (11.5-15.5) % Plt Count (150-450) k/uL MPV Neutrophils % % Lymphocytes % % Monocytes % % Eosinophils % % Basophils % % Neutrophils # (1.3-7.7) k/uL Lymphocytes # (1.0-4.8) k/uL Monocytes # (0-1.0) k/uL Eosinophils # (0-0.7) k/uL Basophils # (0-0.2) k/uL PT (9.0-12.0) sec INR (<1.2) APTT (22.0-30.0) sec D-Dimer (<0.60) mg/L FEU Sodium (137-145) mmol/L Potassium (3.5-5.1) mmol/L Chloride (98-107) mmol/L Carbon Dioxide (22-30) mmol/L Anion Gap mmol/L BUN (7-17) mg/dL Creatinine (0.52-1.04) mg/dL Est GFR (CKD-EPI)AfAm (>60 ml/min/1.73 sqM) Est GFR (CKD-EPI)NonAf (>60 ml/min/1.73 sqM) Glucose (74-99) mg/dL Lactic Ac Sepsis Rflx Y Plasma Lactic Acid Dewayne (0.7-2.0) mmol/L Calcium (8.4-10.2) mg/dL Magnesium (1.6-2.3) mg/dL Total Bilirubin (0.2-1.3) mg/dL AST (14-36) U/L ALT (4-34) U/L Alkaline Phosphatase (38-126) U/L Troponin I (0.000-0.034) ng/mL NT-Pro-B Natriuret Pep pg/mL Total Protein (6.3-8.2) g/dL Albumin (3.5-5.0) g/dL TSH (0.465-4.680) mIU/L Free T4 (0.78-2.19) ng/dL Urine Color Yellow Urine Appearance Cloudy H (Clear) Urine pH 6.5 (5.0-8.0) Ur Specific Ceres 1.020 (1.001-1.035) Urine Protein 1+ H (Negative) Urine Glucose (UA) Trace H (Negative) Urine Ketones 2+ H (Negative) Urine Blood Negative (Negative) Urine Nitrite Negative (Negative) Urine Bilirubin Negative (Negative) Urine Urobilinogen <2.0 (<2.0) mg/dL Ur Leukocyte Esterase Negative (Negative) Urine RBC 1 (0-5) /hpf Urine WBC 2 (0-5) /hpf Ur Squamous Epith Cells 18 H (0-4) /hpf Urine Bacteria Rare H (None) /hpf Hyaline Casts 1 (0-2) /lpf Urine Mucus Moderate H (None) /hpf Urine HCG, Qual (Not Detectd) Coronavirus (PCR) Not Detected (Not Detectd) 03/11/22 03/12/22 03/12/22 Range/Units 23:34 00:35 01:01 WBC (3.8-10.6) k/uL RBC (3.80-5.40) m/uL Hgb (11.4-16.0) gm/dL Hct (34.0-46.0) % MCV (80.0-100.0) fL MCH (25.0-35.0) pg MCHC (31.0-37.0) g/dL RDW (11.5-15.5) % Plt Count (150-450) k/uL MPV Neutrophils % % Lymphocytes % % Monocytes % % Eosinophils % % Basophils % % Neutrophils # (1.3-7.7) k/uL Lymphocytes # (1.0-4.8) k/uL Monocytes # (0-1.0) k/uL Eosinophils # (0-0.7) k/uL Basophils # (0-0.2) k/uL PT (9.0-12.0) sec INR (<1.2) APTT (22.0-30.0) sec D-Dimer (<0.60) mg/L FEU Sodium (137-145) mmol/L Potassium (3.5-5.1) mmol/L Chloride (98-107) mmol/L Carbon Dioxide (22-30) mmol/L Anion Gap mmol/L BUN (7-17) mg/dL Creatinine (0.52-1.04) mg/dL Est GFR (CKD-EPI)AfAm (>60 ml/min/1.73 sqM) Est GFR (CKD-EPI)NonAf (>60 ml/min/1.73 sqM) Glucose (74-99) mg/dL Lactic Ac Sepsis Rflx Y Plasma Lactic Acid Dewayne 2.3 H* (0.7-2.0) mmol/L Calcium (8.4-10.2) mg/dL Magnesium (1.6-2.3) mg/dL Total Bilirubin (0.2-1.3) mg/dL AST (14-36) U/L ALT (4-34) U/L Alkaline Phosphatase (38-126) U/L Troponin I (0.000-0.034) ng/mL NT-Pro-B Natriuret Pep pg/mL Total Protein (6.3-8.2) g/dL Albumin (3.5-5.0) g/dL TSH (0.465-4.680) mIU/L Free T4 (0.78-2.19) ng/dL Urine Color Urine Appearance (Clear) Urine pH (5.0-8.0) Ur Specific Ceres (1.001-1.035) Urine Protein (Negative) Urine Glucose (UA) (Negative) Urine Ketones (Negative) Urine Blood (Negative) Urine Nitrite (Negative) Urine Bilirubin (Negative) Urine Urobilinogen (<2.0) mg/dL Ur Leukocyte Esterase (Negative) Urine RBC (0-5) /hpf Urine WBC (0-5) /hpf Ur Squamous Epith Cells (0-4) /hpf Urine Bacteria (None) /hpf Hyaline Casts (0-2) /lpf Urine Mucus (None) /hpf Urine HCG, Qual Not Detected (Not Detectd) Coronavirus (PCR) (Not Detectd) - EKG Data -: EKG Interpreted by Me (EKG sinus tachycardia 106 VT 140 QRS 84 QTc 404) - Radiology Data Radiology results: report reviewed (Chest x-rays negative for acute disease), image reviewed Disposition Clinical Impression: SVT (supraventricular tachycardia), Dehydration, Asthma with acute exacerbation, Anxiety Disposition: HOME SELF-CARE Condition: Good Instructions (If sedation given, give patient instructions): Asthma (ED), Dehydration (ED) Is patient prescribed a controlled substance at d/c from ED?: No Referrals: Tanvir Tay DO [Primary Care Provider] - 1-2 days Time of Disposition: 01:10
[2022-03-11 21:51] LABS: Basophils % (A) 0 %; Eosinophils # (A) 0.1 k/uL (0-0.7); Eosinophils % (A) 1 %; HCT 44.5 % (34.0-46.0); HGB 14.4 gm/dL (11.4-16.0); Lymphocytes # (A) 1.9 k/uL (1.0-4.8); Lymphocytes % (A) 16 %; MCH 27.8 pg (25.0-35.0); MCHC 32.3 g/dL (31.0-37.0); MCV 86.1 fL (80.0-100.0); Mean Platelet Volume 7.9; Monocytes # (A) 0.4 k/uL (0-1.0); Monocytes % (A) 4 %; Neutrophils # (A) 8.9 k/uL (1.3-7.7); Neutrophils % (A) 77 %; Platelet Count 417 k/uL (150-450); RBC 5.16 m/uL (3.80-5.40); RDW 12.2 % (11.5-15.5); WBC 11.6 k/uL (3.8-10.6)
[2022-03-11 22:02] LABS: INR 0.9 (<1.2); Partial Thromboplastin Time 22.8 sec (22.0-30.0); Prothrombin Time 10.1 sec (9.0-12.0)
[2022-03-11 22:11] LABS: AST 31 U/L (14-36); African American GFR (CKD) >90 (>60 ml/min/1.73 sqM); Albumin 4.6 g/dL (3.5-5.0); Alkaline Phosphatase 123 U/L (38-126); Anion Gap 20 mmol/L; Blood Urea Nitrogen 9 mg/dL (7-17); Carbon Dioxide 16 mmol/L (22-30); Chloride 100 mmol/L (98-107); Glucose 195 mg/dL (74-99); Magnesium 1.9 mg/dL (1.6-2.3); Non-African American GFR(CKD) >90 (>60 ml/min/1.73 sqM); Potassium 3.9 mmol/L (3.5-5.1); Sodium 136 mmol/L (137-145); Total Bilirubin 0.4 mg/dL (0.2-1.3); Total Protein 7.8 g/dL (6.3-8.2)
[2022-03-11] MEDS ORDERED: KETOROLAC 15 MG/ML 1 ML VIAL IVP STA (22:14)
[2022-03-11 22:18] LABS: ALT 28 U/L (4-34)
[2022-03-11] MEDS ORDERED: SODIUM CHLORIDE 0.9% 500 ML 500 ML IV STA (22:23)
[2022-03-11 22:59] VITALS: BP 160/88; PULSE 100
--- NOTE | 2022-03-11 23:01 | XR ---
EXAMINATION TYPE: XR chest 1V portable DATE OF EXAM: 03/11/2022 COMPARISON: 04/07/2020 HISTORY: Short of breath TECHNIQUE: Single view FINDINGS: Heart is normal. Lungs are clear of infiltrate. No heart failure. There are no hilar masses . There are chest leads. Bony thorax is intact. IMPRESSION: Normal chest. No change.
[2022-03-11 23:19] LABS: T4, Free (Free Thyroxine) 1.02 ng/dL (0.78-2.19)
[2022-03-11 23:56] LABS: Appearance,Urine Cloudy (Clear); Bacteria,Urine Rare /hpf; Bilirubin,Urine Negative (Negative); Blood,Urine Negative (Negative); Color,Urine Yellow; Glucose,Urine (UA) Trace (Negative); Hyaline Casts,Urine 1 /lpf (0-2); Ketones,Urine 2+ (Negative); Leukocyte Esterase,Urine Negative (Negative); Mucus,Urine Moderate /hpf; Nitrite,Urine Negative (Negative); PH, Urine 6.5 (5.0-8.0); Protein,Urine 1+ (Negative); RBC,Urine 1 /hpf (0-5); Squamous Epithelial Cell,Urine 18 /hpf (0-4); Urobilinogen,Urine <2.0 mg/dL (<2.0); WBC,Urine 2 /hpf (0-5)
[2022-03-12] MEDS ORDERED: ONDANSETRON 4 MG ODT STARTER PACK 2 TAB BTL PO STA (00:28)
[2022-03-12 01:24] VITALS: RESP 16
== END 2022-03-12 01:29 | disposition home or self-care (01) ==
LOC: EC 21:13
DX: I47.1 Supraventricular tachycardia (principal); E86.0 Dehydration; J45.901 Unspecified asthma with (acute) exacerbation; F41.9 Anxiety disorder, unspecified; J45.909 Unspecified asthma, uncomplicated; I10 Essential (primary) hypertension; Z20.822 Contact with and (suspected) exposure to COVID-19; Z88.5 Allergy status to narcotic agent; Z88.8 Allergy status to other drugs, medicaments and biological substances
CPT/HCPCS: 36415 ×2; 93005; 85379; 84439; 83880; 80053; 84443; 83605 ×2; 83735; 84484; 85025; 85610; 85730; 81001; 81025; 87635; 71045; 99285; 96374; 96361; J1885

== ENCOUNTER 2022-09-06 18:49 | Emergency (ER) | payer OTHER ==
--- NOTE | 2022-09-06 19:23 | ED ---
Chest Pain HPI - General Chief Complaint: Chest Pain Stated Complaint: chest pain Time Seen by Provider: 09/06/22 19:19 Source: patient, RN notes reviewed Mode of arrival: ambulatory Limitations: no limitations - History of Present Illness Initial Comments: Patient is 27 year old female who presents to the emergency department with chest pain. Started yesterday. Patient reports intermittent episodes of shooting pain on the left-side of her chest that radiates to her back. She denies injury to the chest no recent falls or heavy lifting. No numbness or tingling. Patient does have history of SVT states it is controlled on Corlanor. She also has history of hypertension states she takes medication daily does not know the name. She follows with Dr. Mcgowan. She denies palpitations and shortness of breath. Denies fever, chills, headache, cold-like symptoms, abdominal pain, nausea, vomiting. Denies hx of tobacco use. - Related Data Home Medications Medication Instructions Recorded Confirmed norgestimate-ethinyl estradioL 1 tab PO DAILY 02/16/17 08/05/22 [Sprintec 28 Day Tablet] Ivabradine HCl [Corlanor] 5 mg PO BID 03/16/19 08/05/22 ALPRAZolam [Xanax] 1 mg PO DAILY PRN 08/05/22 08/05/22 Albuterol Sulfate [Albuterol 2 puff PO RT-Q6H PRN 08/05/22 08/05/22 Sulfate Hfa] Dextroamphetamine/Amphetamine 20 mg PO BID 08/05/22 08/05/22 [Adderall] Levothyroxine Sodium [Synthroid] 75 mcg PO DAILY 08/05/22 08/05/22 Previous Rx's Medication Instructions Recorded diphenhydrAMINE [Benadryl] 50 mg PO TID PRN #10 capsule 08/05/22 predniSONE [Deltasone] 20 mg PO BID #10 tab 08/05/22 Allergies Allergy/AdvReac Type Severity Reaction Status Date / Time codeine phosphate Allergy Severe ABDOMINAL Verified 09/06/22 19:01 [From Tylenol-Codeine #3] PAIN, FAINTING shellfish derived Allergy Severe Anaphylaxis Verified 09/06/22 19:01 acetaminophen [From Vicodin] Allergy Nausea & Verified 09/06/22 19:01 Vomiting hydrocodone bitartrate Allergy Nausea & Verified 09/06/22 19:01 [From Vicodin] Vomiting Review of Systems ROS Statement: Those systems with pertinent positive or pertinent negative responses have been documented in the HPI. ROS Other: All systems not noted in ROS Statement are negative. Past Medical History Past Medical History: Asthma, Hypertension, Supraventricular Tachycardia (SVT) Additional Past Medical History / Comment(s): SVT History of Any Multi-Drug Resistant Organisms: MRSA Date of last positivie culture/infection: 06/11/09 MDRO Source:: THIGH Past Surgical History: Adenoidectomy, Cardiac Ablation, Cholecystectomy, Tonsillectomy Additional Past Surgical History / Comment(s): WISDOM TOOTH OUT 11/17/13, Ablasion due to SVT. Past Anesthesia/Blood Transfusion Reactions: Family History of Problems w/ Anesthesia, Motion Sickness Additional Past Anesthesia/Blood Transfusion Reaction / Comment(s): SLOW TO AWAKEN OCC.; sister n/v Past Psychological History: ADD/ADHD Smoking Status: Never smoker Past Alcohol Use History: None Reported Past Drug Use History: None Reported - Past Family History Mother Family Medical History: No Reported History General Exam - General Exam Comments Initial Comments: Visual Physical Exam Vital signs reviewed General: Well-appearing, nontoxic, no acute distress. Head: Normocephalic, atraumatic Eyes: PERRLA, EOMI ENT: Airway patent Chest: Nonlabored breathing Skin: No visual rash, normal skin tone Neuro: Alert and oriented 3 Musculoskeletal: No gross abnormalities Limitations: no limitations General appearance: alert, in no apparent distress Eye exam: Present: normal appearance, PERRL, EOMI. Absent: scleral icterus, conjunctival injection, periorbital swelling Respiratory exam: Present: normal lung sounds bilaterally. Absent: respiratory distress, wheezes, rales, rhonchi, stridor, chest wall tenderness, accessory muscle use Cardiovascular Exam: Present: regular rate, normal rhythm, normal heart sounds. Absent: systolic murmur, diastolic murmur, rubs, gallop, clicks GI/Abdominal exam: Present: soft, normal bowel sounds. Absent: distended, tenderness, guarding, rebound, rigid Neurological exam: Present: alert, oriented X3, CN II-XII intact Psychiatric exam: Present: normal affect, normal mood Skin exam: Present: warm, dry, intact, normal color. Absent: rash Course Vital Signs 09/06/22 09/06/22 09/06/22 18:59 21:00 21:05 Temperature 97.8 F Pulse Rate 98 Pulse Rate [ 76 Right Sitting Manager Subway ] Pulse Rate [ Right Standing] Pulse Rate [ 80 Right Supine Manager [place]way ] Respiratory 20 Rate Blood Pressure 176/109 Blood Pressure 144/77 [Right Arm Sitting] Blood Pressure [Right Arm Standing] Blood Pressure 143/70 [Right Arm Supine] O2 Sat by Pulse 100 Oximetry 09/06/22 09/06/22 21:10 22:43 Temperature 98 F Pulse Rate 70 Pulse Rate [ Right Sitting Manager Subway ] Pulse Rate [ 79 Right Standing] Pulse Rate [ Right Supine Manager [place]way ] Respiratory 16 Rate Blood Pressure 129/80 Blood Pressure [Right Arm Sitting] Blood Pressure 146/90 [Right Arm Standing] Blood Pressure [Right Arm Supine] O2 Sat by Pulse 97 Oximetry Chest Pain MDM - [facility] EKG taken at 19:04, interpreted by me Sinus rhythm, nonspecific T-wave abnormality which appears old compared to EKG on 08/05/22, no ST segment elevation or depression Ventricular rate 84 KS interval 156 QRS duration 80 QTc 396 Was pt. sent in by a medical professional or institution (, PA, ELECTRICIAN RECTIFIER MAINTENANCE, urgent care, hospital, or senior care...) When possible be specific @ -No Did you speak to anyone other than the patient for history (EMS, parent, family, police, friend...)? What history was obtained from this source @ -No Did you review nursing and triage notes (agree or disagree)? Why? @ -I reviewed and agree with nursing and triage notes Were old charts reviewed (outside hosp., previous admission, EMS record, old EKG, old radiological studies, urgent care reports/EKG's, senior care records)? Report findings @ -No old charts were reviewed Differential Diagnosis (chest pain, altered mental status, abdominal pain women, abdominal pain men, vaginal bleeding, weakness, fever, dyspnea, syncope, headache, dizziness, GI bleed, back pain, seizure, CVA, palpatations, mental health)? @ -Differential Chest Pain: Stable Angina, Unstable Angina, STEMI, NSTEMI Aortic Dissection, Pneumothorax, Musculoskeletal, Esophageal Spasm GERD, Cholecystitis, Pancreatitis, Zoster, this is not meant to be an all-inclusive list. EKG interpreted by me (3pts min.). @ -As above X-rays interpreted by me (1pt min.). @ - yes, chest x-ray negative for acute process CT interpreted by me (1pt min.). @ -None done U/S interpreted by me (1pt. min.). @ -None done What testing was considered but not performed or refused? (CT, X-rays, U/S, labs)? Why? @ -None What meds were considered but not given or refused? Why? @ -None Did you discuss the management of the patient with other professionals (professionals i.e. , PA, ELECT[employer]ICIAN [employer] MAINTENANCE, lab, RT, psych nurse, neonatal social worker, chief load dispatcher, teacher, space operations officer, manager of case)? Give summary @ -No Was smoking cessation discussed for >3mins.? @ -No Was critical care preformed (if so, how long)? @ -No Were there social determinants of health that impacted care today? How? (Homelessness, low income, unemployed, alcoholism, drug addiction, transportation, low edu. Level, literacy, decrease access to med. care, usp, rehab)? @ -No Was there de-escalation of care discussed even if they declined (Discuss DNR or withdrawal of care, Hospice)? DNR status @ -No What co-morbidities impacted this encounter? (DM, HTN, Smoking, COPD, CAD, Cancer, CVA, ARF, Chemo, Hep., AIDS, mental health diagnosis, sleep apnea, morbid obesity)? @ -None Was patient admitted / discharged? Hospital course, mention meds given and route, prescriptions, significant lab abnormalities, going to OR and other pertinent info. @ -Patient presenting with atypical chest pain. Hemodynamically stable. EKG shows no evidence of acute ischemia. Troponin and d-dimer are within normal limits. Other laboratory studies were relatively unremarkable. Chest x-ray negative for acute process. Results discussed with patient. Patient had normal stress test and echo last year with Dr. Mcgowan. She has low risk factors for ACS. She'll be discharged with instruction to follow up with cardiology outpatient. Patient discharged in stable condition Undiagnosed new problem with uncertain prognosis? @ -No Drug Therapy requiring intensive monitoring for toxicity (Heparin, Nitro, Insulin, Cardizem)? @ -No Were any procedures done? @ -No Diagnosis/symptom? @ -Atypical chest pain Acute, or Chronic, or Acute on Chronic? @ -acute Uncomplicated (without systemic symptoms) or Complicated (systemic symptoms)? @ -uncomplicated Side effects of treatment? @ -No Exacerbation, Progression, or Severe Exacerbation? @ -No Poses a threat to life or bodily function? How? (Chest pain, USA, IA, pneumonia, PE, COPD, DKA, ARF, appy, cholecystitis, CVA, Diverticulitis, Homicidal, Suicidal, threat to staff... and all critical care pts) @ -No Dr. Gale is my attending Disposition Clinical Impression: Atypical chest pain Disposition: HOME SELF-CARE Condition: Good Instructions (If sedation given, give patient instructions): Chest Pain (ED) Additional Instructions: Follow up with Dr. Mcgowan in 1-2 days. Return to the ED if you experience new, worsening, or concerning symptoms Is patient prescribed a controlled substance at d/c from ED?: No Referrals: Tanvir Tay DO [Primary Care Provider] - 1-2 days
--- NOTE | 2022-09-06 20:08 | XR ---
EXAMINATION TYPE: XR chest 2V DATE OF EXAM: 09/06/2022 COMPARISON: 03/11/2022 HISTORY: Chest pain TECHNIQUE: 2 views FINDINGS: Heart and mediastinum are normal. Lungs are clear. Diaphragm is normal. Bony thorax is inta ct. IMPRESSION: Normal chest. No change.
[2022-09-06] MEDS ORDERED: SODIUM CHLORIDE 0.9% 1,000 ML IV STA (20:34)
[2022-09-06] MEDS ORDERED: KETOROLAC 15 MG/ML 1 ML VIAL IVP STA (20:35)
[2022-09-06 20:56] LABS: Basophils % (A) 0 %; Eosinophils # (A) 0.1 k/uL (0-0.7); Eosinophils % (A) 1 %; HCT 42.7 % (34.0-46.0); HGB 14.1 gm/dL (11.4-16.0); Lymphocytes # (A) 2.5 k/uL (1.0-4.8); Lymphocytes % (A) 23 %; MCH 28.5 pg (25.0-35.0); MCHC 33.1 g/dL (31.0-37.0); MCV 86.3 fL (80.0-100.0); Mean Platelet Volume 7.4; Monocytes # (A) 0.5 k/uL (0-1.0); Monocytes % (A) 5 %; Neutrophils # (A) 7.3 k/uL (1.3-7.7); Neutrophils % (A) 69 %; Platelet Count 355 k/uL (150-450); RBC 4.95 m/uL (3.80-5.40); RDW 13.2 % (11.5-15.5); WBC 10.6 k/uL (3.8-10.6)
[2022-09-06 21:08] LABS: ALT 21 U/L (4-34); AST 25 U/L (14-36); African American GFR (CKD) >90 (>60 ml/min/1.73 sqM); Alkaline Phosphatase 96 U/L (38-126); Anion Gap 9 mmol/L; Blood Urea Nitrogen 11 mg/dL (7-17); Calcium 8.6 mg/dL (8.4-10.2); Carbon Dioxide 24 mmol/L (22-30); Chloride 105 mmol/L (98-107); Glucose 120 mg/dL (74-99); Lipase 118 U/L (23-300); Magnesium 1.9 mg/dL (1.6-2.3); Non-African American GFR(CKD) >90 (>60 ml/min/1.73 sqM); Potassium 3.9 mmol/L (3.5-5.1); Sodium 138 mmol/L (137-145); Total Bilirubin 0.5 mg/dL (0.2-1.3); Total Protein 7.4 g/dL (6.3-8.2)
[2022-09-06 21:46] LABS: INR 0.9 (<1.2); Partial Thromboplastin Time 24.1 sec (22.0-30.0); Prothrombin Time 9.8 sec (9.0-12.0)
[2022-09-06 22:23] LABS: Appearance,Urine Clear (Clear); Bilirubin,Urine Negative (Negative); Blood,Urine Negative (Negative); Color,Urine Yellow; Glucose,Urine (UA) Negative (Negative); Ketones,Urine Trace (Negative); Leukocyte Esterase,Urine Negative (Negative); Mucus,Urine Many /hpf; Nitrite,Urine Negative (Negative); Protein,Urine 1+ (Negative); RBC,Urine <1 /hpf (0-5); Specific Gravity,Urine 1.026 (1.001-1.035); Squamous Epithelial Cell,Urine 4 /hpf (0-4); Urobilinogen,Urine <2.0 mg/dL (<2.0); WBC,Urine 1 /hpf (0-5)
[2022-09-06 22:44] VITALS: BP 129/80; PULSE 70; RESP 16; TEMP 98
== END 2022-09-06 22:50 | disposition home or self-care (01) ==
LOC: EC 18:49
DX: R07.89 Other chest pain (principal); I10 Essential (primary) hypertension; J45.909 Unspecified asthma, uncomplicated; F90.9 Attention-deficit hyperactivity disorder, unspecified type; Z79.899 Other long term (current) drug therapy; Z88.5 Allergy status to narcotic agent; Z88.6 Allergy status to analgesic agent; Z91.013 Allergy to seafood
CPT/HCPCS: 36415; 93005; 85379; 80053; 83690; 83735; 84484; 85025; 85610; 85730; 81001; 81025; 71046; 99285; 96374; 96361; J1885

== ENCOUNTER 2023-07-31 23:38 | Emergency (ER) | payer OTHER ==
[2023-08-01 00:16] VITALS: RESP 20; TEMP 98.8
--- NOTE | 2023-08-01 00:55 | XR ---
EXAMINATION TYPE: XR shoulder complete RT DATE OF EXAM: 08/01/2023 CLINICAL HISTORY: Fall with pain TECHNIQUE: Three views of the right shoulder are obtained. COMPARISON: None. FINDINGS: There is no acute fracture/dislocation evident in the right shoulder. The acromioclavicul ar and glenohumeral joint spaces appear within normal limits. The visualized ribs are intact and unr emarkable. Overlying bra strap is present. IMPRESSION: There is no acute fracture or dislocation in the right shoulder.
--- NOTE | 2023-08-01 00:56 | XR ---
EXAMINATION TYPE: XR lumbar spine 2 or 3V DATE OF EXAM: 08/01/2023 CLINICAL HISTORY: Fall with pain TECHNIQUE: Frontal and lateral images of the lumbar spine are obtained. COMPARISON: None FINDINGS: There are 5 lumbar type vertebral bodies identified. The lumbar spine shows slight grade 1 retrolisthesis L5 on S1 without evidence of acute fracture or dislocation. Vertebral body heights a nd disk space heights are within normal limits. Cholecystectomy clips are seen in the overlying soft tissue. IMPRESSION: No acute fracture or dislocation is seen in the lumbar spine.
--- NOTE | 2023-08-01 01:06 | CT ---
EXAMINATION TYPE: CT brain eraine wo con DATE OF EXAM: 08/01/2023 COMPARISON: Prior CT brain 2016. HISTORY: fell down stairs, hurt back and right arm, unsure of LOC CT DLP: 1658.9 mGycm. Automated Exposure Control for Dose Reduction was Utilized. TECHNIQUE: CT scan of the head and cervical spine are performed without contrast. FINDINGS: There is no acute intracranial hemorrhage, mass effect, or midline shift identified. The ventricles and sulci are within normal limits in size. King-white matter differentiation is maintain ed. The globes are intact and the visualized sinuses are clear. The calvarium is intact. Cervical spine is visualized in its entirety from C1 through upper thoracic levels and demonstrates s atisfactory alignment without evidence of acute fracture or dislocation. Prevertebral soft tissue ap pears within normal limits. The C1-C2 articulation is within normal limits on the coronal images. V ertebral body heights and disc space heights are maintained. Spinal canal is preserved. Lung apices a re clear without pneumothorax. Thyroid gland is somewhat small in size. IMPRESSION: 1. There is no acute fracture or dislocation evident in the cervical spine. 2. No acute intracranial hemorrhage, mass effect, or midline shift is seen.
[2023-08-01] MEDS: DEXAMETHASONE SOD PHOSPHATE 10 MG/ML 1 ML VIAL IM STA (01:34)
[2023-08-01] MEDS: KETOROLAC 15 MG/ML 1 ML VIAL IM STA (01:34)
[2023-08-01] MEDS: ORPHENADRINE 30 MG/ML 2 ML VIAL IM STA (01:34)
--- NOTE | 2023-08-01 01:59 | ED ---
Upper Extremity HPI - General Chief Complaint: Extremity Injury, Upper Stated Complaint: fell down stairs,unable to feel right arm, nausea Time Seen by Provider: 08/01/23 00:13 Source: patient Mode of arrival: ambulatory Limitations: no limitations - History of Present Illness Initial Comments: 28-year-old female presenting for evaluation post fall. Patient fell down the stairs in her home today. This was approximately 15 stairs. This occurred around 2230 this evening. She is complaining of neck and lower back pain as well as pain to the right arm. She does admit to some numbness and tingling in the right arm as well. She admits to nausea with no vomiting. No abdominal pain. No chest pain or difficulty breathing. No loss of consciousness or blood thinners. No vision or hearing change. - Related Data Home Medications Medication Instructions Recorded Confirmed norgestimate-ethinyl estradioL 1 tab PO DAILY 02/16/17 08/05/22 [Sprintec 28 Day Tablet] Ivabradine HCl [Corlanor] 5 mg PO BID 03/16/19 08/05/22 ALPRAZolam [Xanax] 1 mg PO DAILY PRN 08/05/22 08/05/22 Albuterol Sulfate [Albuterol 2 puff PO RT-Q6H PRN 08/05/22 08/05/22 Sulfate Hfa] Dextroamphetamine/Amphetamine 20 mg PO BID 08/05/22 08/05/22 [Adderall] Levothyroxine Sodium [Synthroid] 75 mcg PO DAILY 08/05/22 08/05/22 Previous Rx's Medication Instructions Recorded diphenhydrAMINE [Benadryl] 50 mg PO TID PRN #10 capsule 08/05/22 predniSONE [Deltasone] 20 mg PO BID #10 tab 08/05/22 Allergies Allergy/AdvReac Type Severity Reaction Status Date / Time codeine phosphate Allergy Severe ABDOMINAL Verified 07/31/23 23:48 [From Tylenol-Codeine #3] PAIN, FAINTING shellfish derived Allergy Severe Anaphylaxis Verified 07/31/23 23:48 acetaminophen [From Vicodin] Allergy Nausea & Verified 07/31/23 23:48 Vomiting hydrocodone bitartrate Allergy Nausea & Verified 07/31/23 23:48 [From Vicodin] Vomiting Review of Systems ROS Statement: Those systems with pertinent positive or pertinent negative responses have been documented in the HPI. ROS Other: All systems not noted in ROS Statement are negative. Past Medical History Past Medical History: Asthma, Hypertension, Supraventricular Tachycardia (SVT) Additional Past Medical History / Comment(s): SVT History of Any Multi-Drug Resistant Organisms: MRSA Date of last positivie culture/infection: 06/11/09 MDRO Source:: THIGH Past Surgical History: Adenoidectomy, Cardiac Ablation, Cholecystectomy, Tonsillectomy Additional Past Surgical History / Comment(s): WISDOM TOOTH OUT 11/17/13, Ablasion due to SVT. Past Anesthesia/Blood Transfusion Reactions: Family History of Problems w/ Anesthesia, Motion Sickness Additional Past Anesthesia/Blood Transfusion Reaction / Comment(s): SLOW TO AWAKEN OCC.; sister n/v Past Psychological History: ADD/ADHD Smoking Status: Never smoker Past Alcohol Use History: None Reported Past Drug Use History: None Reported - Past Family History Mother Family Medical History: No Reported History General Exam Limitations: no limitations General appearance: alert, in no apparent distress Head exam: Present: atraumatic, normocephalic, normal inspection Eye exam: Present: normal appearance, PERRL, EOMI Neck exam: Present: normal inspection, tenderness Respiratory exam: Present: normal lung sounds bilaterally. Absent: respiratory distress, wheezes, rales, rhonchi, stridor Cardiovascular Exam: Present: regular rate, normal rhythm, normal heart sounds. Absent: systolic murmur, diastolic murmur, rubs, gallop, clicks Extremities exam: Present: normal inspection, normal capillary refill. Absent: full ROM (Right arm limited secondary to pain) Neurological exam: Present: alert, oriented X3 Psychiatric exam: Present: normal affect, normal mood Skin exam: Present: warm, dry Course Vital Signs 07/31/23 08/01/23 08/01/23 23:45 01:34 01:44 Temperature 98.8 F Pulse Rate 106 H 102 H 88 Respiratory 20 20 Rate Blood Pressure 172/123 145/92 O2 Sat by Pulse 97 99 Oximetry Medical Decision Making - Medical Decision Making Was pt. sent in by a medical professional or institution (, PA, SENIOR RESEARCH EXECUTIVE, urgent care, hospital, or group home...) When possible be specific @ -No Did you speak to anyone other than the patient for history (EMS, parent, family, police, friend...)? What history was obtained from this source @ -No Did you review nursing and triage notes (agree or disagree)? Why? @ -I reviewed and agree with nursing and triage notes Were old charts reviewed (outside hosp., previous admission, EMS record, old EKG, old radiological studies, urgent care reports/EKG's, group home records)? Report findings @ -No old charts were reviewed Differential Diagnosis (chest pain, altered mental status, abdominal pain women, abdominal pain men, vaginal bleeding, weakness, fever, dyspnea, syncope, headache, dizziness, GI bleed, back pain, seizure, CVA, palpatations, mental health, musculoskeletal)? @ -Differential Musculoskeletal Muscular strain, contusion, ligament sprain, fracture, arthritis, septic arthritis, bursitis, cellulitis, muscle spasm, nerve compression, DVT, arterial occlusion, herpes zoster, electrolyte abnormality, tumor.... This is not meant to be in all inclusive list EKG interpreted by me (3pts min.). @ -As above X-rays interpreted by me (1pt min.). @ -No acute process seen on lumbar spine x-ray or right shoulder x-ray CT interpreted by me (1pt min.). @ -CT of the brain and cervical spine negative for fracture or dislocation or acute intracranial process U/S interpreted by me (1pt. min.). @ -None done What testing was considered but not performed or refused? (CT, X-rays, U/S, labs)? Why? @ -None What meds were considered but not given or refused? Why? @ -None Did you discuss the management of the patient with other professionals (professionals i.e. , PA, SENIOR RESEARCH EXECUTIVE, lab, RT, psych nurse, manager social work, franchise manager, teacher, aoc operations intelligence officer, cyanide case hardener)? Give summary @ -No Was smoking cessation discussed for >3mins.? @ -No Was critical care preformed (if so, how long)? @ -No Were there social determinants of health that impacted care today? How? (Homelessness, low income, unemployed, alcoholism, drug addiction, transportation, low edu. Level, literacy, decrease access to med. care, detention, rehab)? @ -No Was there de-escalation of care discussed even if they declined (Discuss DNR or withdrawal of care, Hospice)? DNR status @ -No What co-morbidities impacted this encounter? (DM, HTN, Smoking, COPD, CAD, Cancer, CVA, ARF, Chemo, Hep., AIDS, mental health diagnosis, sleep apnea, morbid obesity)? @ -None Was patient admitted / discharged? Hospital course, mention meds given and route, prescriptions, significant lab abnormalities, going to OR and other pertinent info. @ -28-year-old female presenting for evaluation post fall. Patient fell down 15 stairs at home at 2230, complaining of neck, lower back, and right arm pain. History and physical exam conducted. No acute process seen on lumbar spine x- ray, shoulder x-ray, or CT of brain and cervical spine. Patient is provided with pain medication and educated on supportive management at home. Discharged home. Follow-up with PCP. Report back to ER with any new or worsening symptoms. Discussed return parameters and answered all questions. Patient conveyed verbal understanding and agreed to the plan. I discussed this case in detail with my attending Dr. Dominguez Undiagnosed new problem with uncertain prognosis? @ -No Drug Therapy requiring intensive monitoring for toxicity (Heparin, Nitro, Insulin, Cardizem)? @ -No Were any procedures done? @ -No Diagnosis/symptom? @ -Fall, head injury Acute, or Chronic, or Acute on Chronic? @ -Acute Uncomplicated (without systemic symptoms) or Complicated (systemic symptoms)? @ -Uncomplicated Side effects of treatment? @ -No Exacerbation, Progression, or Severe Exacerbation? @ -No Poses a threat to life or bodily function? How? (Chest pain, [place], [place], pneumonia, PE, COPD, DKA, ARF, appy, cholecystitis, CVA, Diverticulitis, Homicidal, Suicidal, threat to staff... and all critical care pts) @ -No Disposition Clinical Impression: Fall Disposition: HOME SELF-CARE Condition: Good Instructions (If sedation given, give patient instructions): Head Injury (ED), Acute Neck Pain (ED) Additional Instructions: Follow-up with PCP. Report back to ER with any new or worsening symptoms. Alternate Motrin and Tylenol as needed for pain control. Is patient prescribed a controlled substance at d/c from ED?: No Referrals: Tanvir Tay DO [Primary Care Provider] - 1-2 days Time of Disposition: 01:58
[2023-08-01 02:00] VITALS: BP 145/92; PULSE 88
== END 2023-08-01 02:08 | disposition home or self-care (01) ==
LOC: EC 23:38
DX: S09.90XA Unspecified injury of head, initial encounter (principal); J45.909 Unspecified asthma, uncomplicated; I10 Essential (primary) hypertension; F90.9 Attention-deficit hyperactivity disorder, unspecified type; Z79.899 Other long term (current) drug therapy; Z88.5 Allergy status to narcotic agent; Z88.6 Allergy status to analgesic agent; Z91.013 Allergy to seafood; Z88.8 Allergy status to other drugs, medicaments and biological substances; W10.9XXA Fall (on) (from) unspecified stairs and steps, initial encounter
CPT/HCPCS: 72100; 73030; 72125; 70450; 99284; 96372 ×3; J1100; J2360; J1885

== ENCOUNTER 2024-05-29 17:26 | Emergency (ER) | payer OTHER ==
[2024-05-29 17:37] VITALS: BP 190/124; PULSE 90; RESP 20; TEMP 98.5
[2024-05-29 18:03] LABS: Basophils % (A) 0 %; Eosinophils # (A) 0.1 k/uL (0-0.7); Eosinophils % (A) 1 %; HCT 42.9 % (34.0-46.0); HGB 14.5 gm/dL (11.4-16.0); Lymphocytes # (A) 2.2 k/uL (1.0-4.8); Lymphocytes % (A) 18 %; MCH 29.2 pg (25.0-35.0); MCHC 33.8 g/dL (31.0-37.0); MCV 86.4 fL (80.0-100.0); Mean Platelet Volume 7.6; Monocytes # (A) 0.4 k/uL (0-1.0); Monocytes % (A) 3 %; Neutrophils # (A) 9.3 k/uL (1.3-7.7); Neutrophils % (A) 77 %; Platelet Count 372 k/uL (150-450); RBC 4.96 m/uL (3.80-5.40); RDW 12.9 % (11.5-15.5); WBC 12.1 k/uL (3.8-10.6)
[2024-05-29 18:12] LABS: INR 0.9 (<1.2); Prothrombin Time 10.3 sec (10.0-12.5)
[2024-05-29 18:15] LABS: ALT 14 U/L (4-34); AST 20 U/L (14-36); African American GFR (CKD) >90 (>60 ml/min/1.73 sqM); Albumin 4.7 g/dL (3.5-5.0); Alkaline Phosphatase 118 U/L (38-126); Anion Gap 12 mmol/L; Blood Urea Nitrogen 11 mg/dL (7-17); Calcium 9.6 mg/dL (8.4-10.2); Carbon Dioxide 23 mmol/L (22-30); Chloride 99 mmol/L (98-107); Glucose 144 mg/dL (74-99); Non-African American GFR(CKD) >90 (>60 ml/min/1.73 sqM); Potassium 3.8 mmol/L (3.5-5.1); Sodium 134 mmol/L (137-145); Total Bilirubin 0.4 mg/dL (0.2-1.3); Total Protein 8.1 g/dL (6.3-8.2)
--- NOTE | 2024-05-29 18:16 | XR ---
EXAMINATION TYPE: XR chest 2V DATE OF EXAM: 05/29/2024 6:10 PM CLINICAL INDICATION:Female, 29 years old with history of sob dizzy; [facility] COMPARISON: None. TECHNIQUE: XR chest 2V Frontal view of the chest. FINDINGS: Lungs/Pleura: There is no evidence of pleural effusion, focal consolidation, or pneumothorax. Pulmonary vascularity: Unremarkable. Heart/mediastinum: Cardiomediastinal silhouette is unremarkable. Musculoskeletal: No acute osseous pathology. Other findings: None IMPRESSION: No acute cardiopulmonary disease/process. [facility], , 05/29/2024 6:14 PM
[2024-05-29 18:20] LABS: Appearance,Urine Clear (Clear); Bilirubin,Urine Negative (Negative); Blood,Urine Negative (Negative); Color,Urine Colorless; Glucose,Urine (UA) Negative (Negative); Ketones,Urine 2+ (Negative); Leukocyte Esterase,Urine Negative (Negative); Nitrite,Urine Negative (Negative); Protein,Urine Trace (Negative); Specific Gravity,Urine 1.019 (1.001-1.035); Urobilinogen,Urine <2.0 mg/dL (<2.0)
== END 2024-05-29 20:08 | disposition left against medical advice (07) ==
LOC: EC 17:26
DX: R42 Dizziness and giddiness (principal); R11.2 Nausea with vomiting, unspecified; R53.1 Weakness; Z53.21 Procedure and treatment not carried out due to patient leaving prior to being seen by health care provider
CPT/HCPCS: 36415; 71046; 80053; 81003; 84484; 85025; 85610; 93005; 99499

== ENCOUNTER 2024-05-31 22:08 | Emergency (ER) | payer OTHER ==
[2024-05-31 22:15] VITALS: RESP 18
--- NOTE | 2024-05-31 22:15 | ED ---
Syncope HPI - General Chief Complaint: Syncope Stated Complaint: Near-Syncope Time Seen by Provider: 05/31/24 22:14 Source: EMS, RN notes reviewed, old records reviewed Mode of arrival: EMS Limitations: no limitations - History of Present Illness Initial Comments: This is a 29-year-old female to the ER for evaluation of multiple complaints, near syncopal event also complaining of significant migraine headaches headaches that have been going on for a few days now. Body aches pains she was getting the flu earlier this week severely elevated blood pressure MD Complaint: almost passed out, other (Briefly elevated blood pressure with headache) -: days(s) Prodromal Symptoms: headache, lightheaded, palpitations, nausea/vomiting Current Symptoms: lightheaded History: previous syncopal episode Context: related to severe pain Treatments Prior to Arrival: none - Related Data Home Medications Medication Instructions Recorded Confirmed norgestimate-ethinyl estradioL 1 tab PO DAILY 02/16/17 08/05/22 [Sprintec 28 Day Tablet] Ivabradine HCl [Corlanor] 5 mg PO BID 03/16/19 08/05/22 ALPRAZolam [Xanax] 1 mg PO DAILY PRN 08/05/22 08/05/22 Albuterol Sulfate [Albuterol 2 puff PO RT-Q6H PRN 08/05/22 08/05/22 Sulfate Hfa] Dextroamphetamine/Amphetamine 20 mg PO BID 08/05/22 08/05/22 [Adderall] Levothyroxine Sodium [Synthroid] 75 mcg PO DAILY 08/05/22 08/05/22 Previous Rx's Medication Instructions Recorded diphenhydrAMINE [Benadryl] 50 mg PO TID PRN #10 capsule 08/05/22 predniSONE [Deltasone] 20 mg PO BID #10 tab 08/05/22 Allergies Allergy/AdvReac Type Severity Reaction Status Date / Time codeine phosphate Allergy Severe ABDOMINAL Verified 05/31/24 22:15 [From Tylenol-Codeine #3] PAIN, FAINTING shellfish derived Allergy Severe Anaphylaxis Verified 05/31/24 22:15 acetaminophen [From Vicodin] Allergy Nausea & Verified 05/31/24 22:15 Vomiting hydrocodone bitartrate Allergy Nausea & Verified 05/31/24 22:15 [From Vicodin] Vomiting Review of Systems ROS Statement: Those systems with pertinent positive or pertinent negative responses have been documented in the HPI. ROS Other: All systems not noted in ROS Statement are negative. Past Medical History Past Medical History: Asthma, Hypertension, Supraventricular Tachycardia (SVT) Additional Past Medical History / Comment(s): SVT History of Any Multi-Drug Resistant Organisms: MRSA Date of last positivie culture/infection: 06/11/09 MDRO Source:: THIGH Past Surgical History: Adenoidectomy, Cardiac Ablation, Cholecystectomy, Tonsil lectomy Additional Past Surgical History / Comment(s): WISDOM TOOTH OUT 11/17/13, Ablasion due to SVT. Past Anesthesia/Blood Transfusion Reactions: Family History of Problems w/ Anesthesia, Motion Sickness Additional Past Anesthesia/Blood Transfusion Reaction / Comment(s): SLOW TO AWAKEN OCC.; sister n/v Past Psychological History: ADD/ADHD Smoking Status: Never smoker Past Alcohol Use History: None Reported Past Drug Use History: None Reported - Past Family History Mother Family Medical History: No Reported History General Exam Limitations: no limitations General appearance: alert, in no apparent distress Head exam: Present: atraumatic, normocephalic, normal inspection Eye exam: Present: normal appearance, PERRL, EOMI. Absent: scleral icterus, conjunctival injection, periorbital swelling ENT exam: Present: normal exam, mucous membranes moist Neck exam: Present: normal inspection. Absent: tenderness, meningismus, lymphadenopathy Respiratory exam: Present: normal lung sounds bilaterally. Absent: respiratory distress, wheezes, rales, rhonchi, stridor Cardiovascular Exam: Present: regular rate, normal rhythm, normal heart sounds. Absent: systolic murmur, diastolic murmur, rubs, gallop, clicks GI/Abdominal exam: Present: soft, normal bowel sounds. Absent: distended, tenderness, guarding, rebound, rigid Extremities exam: Present: normal inspection, full ROM, normal capillary refill. Absent: tenderness, pedal edema, joint swelling, calf tenderness Back exam: Present: normal inspection Neurological exam: Present: alert, oriented X3, CN II-XII intact Psychiatric exam: Present: normal affect, normal mood Skin exam: Present: warm, dry, intact, normal color. Absent: rash Course Vital Signs 05/31/24 22:11 Temperature 99.3 F Pulse Rate 88 Respiratory 18 Rate Blood Pressure 172/91 O2 Sat by Pulse 99 Oximetry - Reevaluation(s) Reevaluation #1: 05/31/24 22:50 Medical records reviewed Reevaluation #2: 05/31/24 23:32 Patient's headache is resolved blood pressure improved without treatment Reevaluation #3: 05/31/24 23:32 Results questions answered Reevaluation #4: Was pt. sent in by a medical professional or institution (, MIKE, BRAKE ENGINEER, urgent care, hospital, or residential...) When possible be specific @ -no Did you speak to anyone other than the patient for history (EMS, parent, family, police, friend...)? What history was obtained from this source @ -no Did you review nursing and triage notes (agree or disagree)? Why? @ -agree Are old charts reviewed (outside hosp., previous admission, EMS record, old EKG, old radiological studies, urgent care reports/EKG's, residential records)? Report findings @ -yes Differential Diagnosis (chest pain, altered mental status, abdominal pain women, abdominal pain men, vaginal bleeding, weakness, fever, dyspnea, syncope, headache, dizziness, GI bleed, back pain, seizure, CVA, palpatations, mental health, musculoskeletal)? @ -prior EKG interpreted by me (3pts min.). @ -yes X-rays interpreted by me (1pt min.). @ -yes negative for acute disease CT interpreted by me (1pt min.). @ -no U/S interpreted by me (1pt. min.). @ -no What testing was considered but not performed or refused? (CT, X-rays, U/S, labs)? Why? @ -none What meds were considered but not given or refused? Why? @ -none Did you discuss the management of the patient with other professionals (professionals i.e. , MIKE, BRAKE ENGINEER, lab, RT, psych nurse, geriatric social worker, criminal defense lawyer, teacher, truant officer, bottle caser)? Give summary @ -no Was smoking cessation discussed for >3mins.? @ -no Was critical care preformed (if so, how long)? @ -no Were there social determinants of health that impacted care today? How? (Homelessness, low income, unemployed, alcoholism, drug addiction, transportation, low edu. Level, literacy, decrease access to med. care, senior living, rehab)? @ -none Was there de-escalation of care discussed even if they declined (Discuss DNR or withdrawal of care, Hospice)? DNR status @ -no What co-morbidities impacted this encounter? (DM, HTN, Smoking, COPD, CAD, Cancer, CVA, ARF, Chemo, Hep., AIDS, mental health diagnosis, sleep apnea, morbid obesity)? @ -none Was patient admitted / discharged? Hospital course, mention meds given and route, prescriptions, significant lab abnormalities, going to OR and other pertinent info. @ - Undiagnosed new problem with uncertain prognosis? @ -no Drug Therapy requiring intensive monitoring for toxicity (Heparin, Nitro, Insulin, Cardizem)? @ -no Were any procedures done? @ -no Diagnosis/symptom? @ - Acute, or Chronic, or Acute on Chronic? @ -Acute Uncomplicated (without systemic symptoms) or Complicated (systemic symptoms)? @ -Complicated Side effects of treatment? @ -no Exacerbation, Progression, or Severe Exacerbation? @ -exacerbation Poses a threat to life or bodily function? How? (Chest pain, [place], [place], pneumonia, PE, COPD, DKA, ARF, appy, cholecystitis, CVA, Diverticulitis, Homicidal, Velásquez icidal, threat to staff... and all critical care pts) @ -yes Reevaluation #5: Differential Syncope: Valvular disease, hypertrophic cardiomyopathy, pulmonary embolism, tamponade, tachycardia, bradycardia, [place], hypovolemia, hemorrhage, dissection, anemia, intracranial hemorrhage, seizure, hypoglycemia, carbon monoxide poisoning, this is not meant to be an all-inclusive list. Differential Headache: Migraine, tension, cluster, carbon monoxide, central venous thrombosis, pension karma temporal arteritis, acute closure glaucoma, intercranial hemorrhage, mastoiditis, sinusitis, head injury, this is not meant to be an all-inclusive list. Medical Decision Making - Medical Decision Making 29 female with migraine headache, headache resolved h, patient feels well and can be discharged home ere in the ER blood pressure initially elevated no treatment has improved - Lab Data Result diagrams: 05/31/24 22:29 05/31/24 22:29 Lab Results 05/31/24 05/31/24 05/31/24 Range/Units 22:29 22:29 22:29 WBC 12.0 H (3.8-10.6) k/uL RBC 4.84 (3.80-5.40) m/uL Hgb 13.8 (11.4-16.0) gm/dL Hct 41.8 (34.0-46.0) % MCV 86.5 (80.0-100.0) fL MCH 28.6 (25.0-35.0) pg MCHC 33.1 (31.0-37.0) g/dL RDW 12.9 (11.5-15.5) % Plt Count 343 (150-450) k/uL MPV 7.4 Neutrophils % 68 % Lymphocytes % 25 % Monocytes % 4 % Eosinophils % 1 % Basophils % 0 % Neutrophils # 8.1 H (1.3-7.7) k/uL Lymphocytes # 3.0 (1.0-4.8) k/uL Monocytes # 0.5 (0-1.0) k/uL Eosinophils # 0.2 (0-0.7) k/uL Basophils # 0.0 (0-0.2) k/uL D-Dimer 0.30 (<0.60) mg/L FEU Sodium 136 L (137-145) mmol/L Potassium 3.4 L (3.5-5.1) mmol/L Chloride 108 H (98-107) mmol/L Carbon Dioxide 19 L (22-30) mmol/L Anion Gap 9 mmol/L BUN 8 (7-17) mg/dL Creatinine 0.53 (0.52-1.04) mg/dL Est GFR (CKD-EPI)AfAm >90 (>60 ml/min/1.73 sqM) Est GFR (CKD-EPI)NonAf >90 (>60 ml/min/1.73 sqM) Glucose 186 H (74-99) mg/dL Calcium 8.8 (8.4-10.2) mg/dL Phosphorus 2.5 (2.5-4.5) mg/dL Magnesium 1.8 (1.6-2.3) mg/dL Total Bilirubin 0.4 (0.2-1.3) mg/dL AST 19 (14-36) U/L ALT 14 (4-34) U/L Alkaline Phosphatase 99 (38-126) U/L NT-Pro-B Natriuret Pep 27 pg/mL Total Protein 7.0 (6.3-8.2) g/dL Albumin 4.0 (3.5-5.0) g/dL Lipase 123 (23-300) U/L Urine Color Urine Appearance (Clear) Urine pH (5.0-8.0) Ur Specific [place] (1.001-1.035) Urine Protein (Negative) Urine Glucose (UA) (Negative) Urine Ketones (Negative) Urine Blood (Negative) Urine Nitrite (Negative) Urine Bilirubin (Negative) Urine Urobilinogen (<2.0) mg/dL Ur Leukocyte Esterase (Negative) Urine RBC (0-5) /hpf Urine WBC (0-5) /hpf Ur Squamous Epith Cells (0-4) /hpf Amorphous Sediment (None) /hpf Urine Bacteria (None) /hpf Urine Mucus (None) /hpf Urine HCG, Qual (Not Detectd) Serum Alcohol <10 mg/dL Influenza Type A (PCR) (Not Detectd) Influenza Type B (PCR) (Not Detectd) RSV (PCR) (Not Detectd) SARS-CoV-2 (PCR) (Not Detectd) 05/31/24 05/31/24 05/31/24 Range/Units 22:37 22:37 22:37 WBC (3.8-10.6) k/uL RBC (3.80-5.40) m/uL Hgb (11.4-16.0) gm/dL Hct (34.0-46.0) % MCV (80.0-100.0) fL MCH (25.0-35.0) pg MCHC (31.0-37.0) g/dL RDW (11.5-15.5) % Plt Count (150-450) k/uL MPV Neutrophils % % Lymphocytes % % Monocytes % % Eosinophils % % Basophils % % Neutrophils # (1.3-7.7) k/uL Lymphocytes # (1.0-4.8) k/uL Monocytes # (0-1.0) k/uL Eosinophils # (0-0.7) k/uL Basophils # (0-0.2) k/uL D-Dimer (<0.60) mg/L FEU Sodium (137-145) mmol/L Potassium (3.5-5.1) mmol/L Chloride (98-107) mmol/L Carbon Dioxide (22-30) mmol/L Anion Gap mmol/L BUN (7-17) mg/dL Creatinine (0.52-1.04) mg/dL Est GFR (CKD-EPI)AfAm (>60 ml/min/1.73 sqM) Est GFR (CKD-EPI)NonAf (>60 ml/min/1.73 sqM) Glucose (74-99) mg/dL Calcium (8.4-10.2) mg/dL Phosphorus (2.5-4.5) mg/dL Magnesium (1.6-2.3) mg/dL Total Bilirubin (0.2-1.3) mg/dL AST (14-36) U/L ALT (4-34) U/L Alkaline Phosphatase (38-126) U/L NT-Pro-B Natriuret Pep pg/mL Total Protein (6.3-8.2) g/dL Albumin (3.5-5.0) g/dL Lipase (23-300) U/L Urine Color Colorless Urine Appearance Cloudy H (Clear) Urine pH 7.0 (5.0-8.0) Ur Specific [place] 1.011 (1.001-1.035) Urine Protein Negative (Negative) Urine Glucose (UA) 2+ H (Negative) Urine Ketones Negative (Negative) Urine Blood Negative (Negative) Urine Nitrite Negative (Negative) Urine Bilirubin Negative (Negative) Urine Urobilinogen <2.0 (<2.0) mg/dL Ur Leukocyte Esterase Negative (Negative) Urine RBC 1 (0-5) /hpf Urine WBC 5 (0-5) /hpf Ur Squamous Epith Cells 5 H (0-4) /hpf Amorphous Sediment Occasional H (None) /hpf Urine Bacteria Occasional H (None) /hpf Urine Mucus Few H (None) /hpf Urine HCG, Qual Not Detected (Not Detectd) Serum Alcohol mg/dL Influenza Type A (PCR) Not Detected (Not Detectd) Influenza Type B (PCR) Not Detected (Not Detectd) RSV (PCR) Not Detected (Not Detectd) SARS-CoV-2 (PCR) Not Detected (Not Detectd) Disposition Clinical Impression: Near syncope, Migraine headache Disposition: HOME SELF-CARE Condition: Good Is patient prescribed a controlled substance at d/c from ED?: No Referrals: Tanvir Tay DO [Primary Care Provider] - 1-2 days Time of Disposition: 23:30
[2024-05-31] MEDS: diphenhydrAMINE 50 MG/ML 1 ML VIAL IVP STA (22:34)
[2024-05-31] MEDS: PROCHLORPERAZINE INJ 10 MG/2 ML VIAL IVP STA (22:35)
[2024-05-31] MEDS: KETOROLAC 15 MG/ML 1 ML VIAL IVP STA (22:36)
[2024-05-31] MEDS: SODIUM CHLORIDE 0.9% 1,000 ML IV STA (22:37)
[2024-05-31] MEDS: SODIUM CHLORIDE 0.9% 500 ML 500 ML IV STA (22:37)
[2024-05-31 22:45] LABS: Basophils % (A) 0 %; Eosinophils # (A) 0.2 k/uL (0-0.7); Eosinophils % (A) 1 %; HCT 41.8 % (34.0-46.0); HGB 13.8 gm/dL (11.4-16.0); Lymphocytes % (A) 25 %; MCH 28.6 pg (25.0-35.0); MCHC 33.1 g/dL (31.0-37.0); MCV 86.5 fL (80.0-100.0); Mean Platelet Volume 7.4; Monocytes # (A) 0.5 k/uL (0-1.0); Monocytes % (A) 4 %; Neutrophils # (A) 8.1 k/uL (1.3-7.7); Neutrophils % (A) 68 %; Platelet Count 343 k/uL (150-450); RBC 4.84 m/uL (3.80-5.40); RDW 12.9 % (11.5-15.5)
[2024-05-31 22:57] LABS: ALT 14 U/L (4-34); AST 19 U/L (14-36); African American GFR (CKD) >90 (>60 ml/min/1.73 sqM); Alcohol <10 mg/dL; Alkaline Phosphatase 99 U/L (38-126); Anion Gap 9 mmol/L; Blood Urea Nitrogen 8 mg/dL (7-17); Calcium 8.8 mg/dL (8.4-10.2); Carbon Dioxide 19 mmol/L (22-30); Chloride 108 mmol/L (98-107); Glucose 186 mg/dL (74-99); Lipase 123 U/L (23-300); Magnesium 1.8 mg/dL (1.6-2.3); Non-African American GFR(CKD) >90 (>60 ml/min/1.73 sqM); Phosphorus 2.5 mg/dL (2.5-4.5); Potassium 3.4 mmol/L (3.5-5.1); Sodium 136 mmol/L (137-145); Total Bilirubin 0.4 mg/dL (0.2-1.3)
[2024-05-31 22:59] LABS: Amorphous Sediment,Urine Occasional /hpf; Appearance,Urine Cloudy (Clear); Bacteria,Urine Occasional /hpf; Bilirubin,Urine Negative (Negative); Blood,Urine Negative (Negative); Color,Urine Colorless; Glucose,Urine (UA) 2+ (Negative); Ketones,Urine Negative (Negative); Leukocyte Esterase,Urine Negative (Negative); Mucus,Urine Few /hpf; Nitrite,Urine Negative (Negative); Protein,Urine Negative (Negative); RBC,Urine 1 /hpf (0-5); Specific Gravity,Urine 1.011 (1.001-1.035); Squamous Epithelial Cell,Urine 5 /hpf (0-4); Urobilinogen,Urine <2.0 mg/dL (<2.0); WBC,Urine 5 /hpf (0-5)
[2024-05-31 23:05] LABS: NT-Pro-B-Type Natriuretic Pept 27 pg/mL
[2024-05-31] MEDS: POTASSIUM CHLORIDE ER 20 MEQ TAB.ER PO STA (23:30)
[2024-05-31 23:32] VITALS: BP 153/85; PULSE 84
[2024-05-31] MEDS: HYDROmorphone 0.5 MG/0.5 ML SYRINGE IVP STA (23:34)
[2024-05-31 23:44] VITALS: TEMP 97.4
== END 2024-05-31 23:39 | disposition home or self-care (01) ==
LOC: EC 22:08
DX: R55 Syncope and collapse (principal); G43.909 Migraine, unspecified, not intractable, without status migrainosus; Z11.52 Encounter for screening for COVID-19; Z88.6 Allergy status to analgesic agent; Z91.013 Allergy to seafood; Z88.5 Allergy status to narcotic agent
CPT/HCPCS: 36415; 85379; 83880; 80053; 83690; 83735; 84100; 85025; 81001; 81025; 80320; 87636; 99284; 96374; 96375 ×2; 96361; J1200; J0780; J1885